=== PATIENT | female | born 1950 | race Caucasian/White ===

== ENCOUNTER 2019-06-13 09:14 | Emergency (ER) | payer OTHER ==
--- OUTSIDE RECORDS SUMMARY | 2019-06-13 09:16 | XMS REPORT | Summary of Care ---
:1950 Author Name Sherly Owusu M.A. Address Unavailable Unavailable , Care Team Providers Name Role Phone SUPRIYA MORTON Unavailable Unavailable SUPRIYA ALLISON Unavailable Unavailable Unavailable Unavailable Unavailable Functional Status Name Dates Details Functional status health issues are not documented Status: Name Dates Details Cognitive status health issues are not documented Status: Problems Name Dates Details Aftercare following knee joint replacement surgery, unspecified laterality ( V54.81, Z47.1) Status: Active Medications Name Dates Details Medications not documented Allergies and Adverse Reactions Name Dates Details Allergy history not documented Status: Procedures Procedure Dates Details Procedures not documented Immunization Name Dates Details Immunizations not documented Social History Name Dates Details Unknown if ever smoked Vital Signs Date Test Result Details No Known Vitals to report Results Date Description Value Details [id number] [U] XR KNEE 3 VWS BILATERAL XR KNEE 3 VWS BILATERAL Images acquired, not reported on this accession number. Plan of Care Name Dates Details Planned Observations Planned Goals not documented Interventions Provided Labs/Procedures/Imaging[U] XR KNEE 3 VWS BILATERAL; Done: 13 Dec 2018 Instructions Name Dates Details Instructions not documented Encounters Appointment; ARELIS LOWE P.A. On: 09-Oct-2017 13:45 Encounter Diagnosis: Problem not documented Appointment; STEPHANIE FERNANDEZ M.D. On: 31-Oct-2017 11:00 Encounter Diagnosis: Problem not documented Appointment; SUPRIYA KEATING P.A. On: 10-Nov-2017 11:15 Encounter Diagnosis: Problem not documented Appointment; STEPHANIE FERNANDEZ M.D. On: 07-Dec-2017 12:45 Encounter Diagnosis: Problem not documented Appointment; SUPRIYA KEATING P.A. On: 13-Dec-2018 13:20 Encounter Diagnosis: Problem not documented
[2019-06-13 09:56] LABS: Absolute Lymphocytes (CBC) 1.8 K/uL (0.7-4.9); Basophils % 0.4 % (0-1.3); Lymphocytes % 21.9 % (15.3-44.8); MPV 7.3 fL (7.6-11.3)
[2019-06-13] MEDS ORDERED: ASPIRIN 81 MG CHEWABLE TABLET ONE (09:59)
[2019-06-13] MEDS ORDERED: PANTOPRAZOLE 40 MG INJ ONE (10:00)
[2019-06-13 10:05] LABS: Protime INR 1.05
[2019-06-13 10:14] LABS: ALT/SGPT 20 U/L (12-78); AST/SGOT 15 U/L (15-37); Alkaline Phosphatase 122 U/L (45-117); BUN Blood Urea Nitrogen 25 mg/dL (7-18); Bicarbonate 31 mmol/L (21-32); Bilirubin Direct 0.2 mg/dL (0-0.2); Bilirubin Total 0.5 mg/dL (0.2-1.0); Glucose Level 129 mg/dL (74-106); Magnesium 2.2 mg/dL (1.8-2.4); NT PRO-BNP 36 pg/mL (<125); Protein, Total 7.9 g/dL (6.4-8.2); Sodium Level 142 mmol/L (136-145); Troponin (Emerg Dept Use Only) < 0.02 ng/mL (0.0-0.045)
--- NOTE | 2019-06-13 10:21 | RAD REPORT ---
EXAM DESCRIPTION: Rylee Single View06/13/2019 9:59 am CLINICAL HISTORY: Chest pain COMPARISON: none FINDINGS: The lungs appear clear of acute infiltrate. The heart is normal size IMPRESSION: No acute abnormalities displayed
--- NOTE | 2019-06-13 10:40 | ER ---
Nurse's Notes [facility] Name: Julieta Leija Age: 68 yrs Sex: Female : 1950 Arrival Date: 06/13/2019 Time: 09:15 Bed 20 Private MD: Diagnosis: Chest pain, unspecified;Gastro-esophageal reflux disease Presentation: 06/13 09:25 Presenting complaint: Patient states: intermittent indigestion and cold sweats that ss began 1 week ago. Patient also reports anxiety. Transition of care: patient was not received from another setting of care. Onset of symptoms was June 06, 2019. Risk Assessment: Do you want to hurt yourself or someone else? Patient reports no desire to harm self or others. Initial Sepsis Screen: Does the patient meet any 2 criteria? HR > 90 bpm. Does the patient have a suspected source of infection? No. Patient's initial sepsis screen is negative. Care prior to arrival: None. 09:25 Acuity: MIKE 3 ss 09:25 Method Of Arrival: Ambulatory ss Historical: - Allergies: 09:25 Codeine; ss 09:25 PENICILLINS; ss 09:25 steroids; ss - Home Meds: 09:25 None [Active]; ss - PMHx: 09:25 allergies; ss - PSHx: 09:25 Hysterectomy; ss - Immunization history:: Adult Immunizations up to date. - Social history:: Smoking status: Patient/guardian denies using tobacco. - Ebola Screening: : Patient denies exposure to infectious person Patient denies travel to an Ebola-affected area in the 21 days before illness onset. Screenin:07 Abuse screen: Denies threats or abuse. Denies injuries from another. Nutritional jl7 screening: No deficits noted. Tuberculosis screening: No symptoms or risk factors identified. Fall Risk IV access (20 points). Total Fragoso Fall Scale indicates No Risk (0-24 pts). Assessment: 09:20 General: Appears in no apparent distress. uncomfortable, Behavior is calm, cooperative, jl7 appropriate for age. Pain: Complains of pain in xyphoid area and mid-sternal area Pain does not radiate. Pain currently is 0 out of 10 on a pain scale. at worst was 8 out of 10 on a pain scale. Quality of pain is described as burning, Pain began a week ago Is intermittent. Neuro: Level of Consciousness is awake, alert, obeys commands, Oriented to person, place, time, situation. Cardiovascular: Patient's skin is warm and dry. Respiratory: Airway is patent Respiratory effort is even, unlabored, Respiratory pattern is regular, symmetrical, Breath sounds are clear bilaterally. GI: Reports epigastric pain. Derm: Skin is pink, warm \T\ dry. 10:32 Reassessment: Patient appears in no apparent distress at this time. Patient is alert, ca1 oriented x 3, equal unlabored respirations, skin warm/dry/pink. Vital Signs: 09:24 BP 176 / 91; Pulse 94; Resp 18; Temp 97.6(TE); Pulse Ox 98% on R/A; Weight 90.72 kg; ss Height 5 ft. 5 in. (165.10 cm); Pain 8/10; 10:07 BP 172 / 77; Pulse 89; Resp 16 S; Pulse Ox 96% on R/A; ca1 10:45 BP 154 / 89; Pulse 88; Resp 14 S; Pulse Ox 97% on R/A; ca1 09:24 Body Mass Index 33.28 (90.72 kg, 165.10 cm) ED Course: 09:15 Patient arrived in ED. as 09:19 Kyra Major RN is Primary Nurse. jl7 09:19 Zeferino Cunningham PA is PHCP. jr8 09:19 Krunal Perales MD is Attending Physician. jr8 09:20 Patient has correct armband on for positive identification. Placed in gown. Bed in low jl7 position. Call light in reach. Side rails up X 1. field mechanic on. Pulse ox on. NIBP on. 09:20 Warm blanket given. jl7 09:24 Arm band placed on right wrist. ss 09:29 Triage completed. ss 09:47 EKG done, by manufacturing tech. reviewed by Zeferino DIAZ. at1 09:51 Initial lab(s) drawn, by me, sent to lab. Inserted saline lock: 22 gauge in left jb1 antecubital area, using aseptic technique. Blood collected. 10:02 XRAY Chest (1 view) In Process Unspecified. EDMS 10:08 Report given to TODD Reaves. jl7 10:10 Primary Nurse role handed off by Kyra Major RN jl7 10:15 Acob, Jelly, RN is Primary Nurse. ca1 10:39 Chau Gunn MD is Referral Physician. jr8 11:01 No provider procedures requiring assistance completed. IV discontinued, intact, ca1 bleeding controlled, No redness/swelling at site. Pressure dressing applied. Administered Medications: 10:05 Drug: Aspirin Chewable Tablet 324 mg {Note: Pt reports taking one 81 mg aspirin this jl7 morning; 243 mg administered at this time..} Route: PO; 10:54 Follow up: Response: No adverse reaction ca1 10:05 Drug: ProTONIX 40 mg Route: IVP; Site: left antecubital; jl7 10:54 Follow up: Response: No adverse reaction ca1 Outcome: 10:40 Discharge ordered by MD. jr8 11: Discharged to home ambulatory, with family. ca1 11:01 Condition: stable 11:01 Discharge instructions given to patient, Instructed on discharge instructions, follow up and referral plans. medication usage, Demonstrated understanding of instructions, follow-up care, medications, Prescriptions given X 1. 11:02 Patient left the ED. ca1 Signatures: Dispatcher [employer] EDMS Manny Tuttle jb1 Kat Gil Shelby, RN RN Zeferino Cunningham PA PA jr8 Clau Bhatti, foundation engineer EKG Tat1 Kyra Major RN RN jl7 Jelly Smith, RN RN ca1
--- NOTE | 2019-06-13 10:41 | EDPHYS ---
Physician Documentation [facility] Name: Julieta Leija Age: 68 yrs Sex: Female : 1950 Arrival Date: 06/13/2019 Time: 09:15 Bed 20 Private MD: ED Physician Krunal Perales HPI: 06/13 09:58 This 68 yrs old Female presents to ER via Ambulatory with complaints of Jaw jr8 Pain, Indigestion, Cold Sweats. 09:58 Onset: gradually, 1 week(s) ago, and became worse. Onset: The symptoms/episode jr8 began/occurred acutely, today. The pain radiates to left jaw. Associated signs and symptoms: Pertinent negatives: abdominal pain, shortness of breath, vomiting. Modifying factors: The patient symptoms are alleviated by nothing, the patient symptoms are aggravated by nothing. Associated signs and symptoms: The patient has no apparent associated signs or symptoms. The chest pain is described as a pressure, stabbing. Duration: The patient or guardian reports multiple episodes, that are intermittent, the episodes last approximately 2 hour(s). Modifying factors: The symptoms are alleviated by antacids, NSAIDS, bleching. Severity of pain: At its worst the pain was moderate in the emergency department the pain has resolved. The patient has not experienced similar symptoms in the past. The patient has not recently seen a physician. 09:59 Patient has had indigestion like feeling on/off for one week with cold sweats. Was jr8 prolonged today without relief until she got to the ED. Some relief with belching, NSAIDs, and Tums with episodes. No history of GERD. On no daily medicines currently. Came to ED because it was not going away . Historical: - Allergies: 09:25 Codeine; ss 09:25 PENICILLINS; ss 09:25 steroids; ss - Home Meds: 09:25 None [Active]; ss - PMHx: 09:25 allergies; ss - PSHx: 09:25 Hysterectomy; ss - Immunization history:: Adult Immunizations up to date. - Social history:: Smoking status: Patient/guardian denies using tobacco. - Ebola Screening: : Patient denies exposure to infectious person Patient denies travel to an Ebola-affected area in the 21 days before illness onset. ROS: 09:58 Eyes: Negative for injury, pain, redness, and discharge, ENT: Negative for injury, jr8 pain, and discharge, Neck: Negative for injury, pain, and swelling, Respiratory: Negative for shortness of breath, cough, wheezing, and pleuritic chest pain, Abdomen/GI: Negative for abdominal pain, nausea, vomiting, diarrhea, and constipation, Back: Negative for injury and pain, MS/Extremity: Negative for injury and deformity, Skin: Negative for injury, rash, and discoloration, Neuro: Negative for headache, weakness, numbness, tingling, and seizure. 09:58 Cardiovascular: Positive for chest pain, Negative for edema, orthopnea, palpitations, paroxysmal nocturnal dyspnea. Exam: 09:58 Eyes: Pupils equal round and reactive to light, extra-ocular motions intact. Lids and jr8 lashes normal. Conjunctiva and sclera are non-icteric and not injected. Cornea within normal limits. Periorbital areas with no swelling, redness, or edema. ENT: Nares patent. No nasal discharge, no septal abnormalities noted. Tympanic membranes are normal and external auditory canals are clear. Oropharynx with no redness, swelling, or masses, exudates, or evidence of obstruction, uvula midline. Mucous membranes moist. Neck: Trachea midline, no thyromegaly or masses palpated, and no cervical lymphadenopathy. Supple, full range of motion without nuchal rigidity, or vertebral point tenderness. No Meningismus. Cardiovascular: Regular rate and rhythm with a normal S1 and S2. No gallops, murmurs, or rubs. Normal PMI, no JVD. No pulse deficits. Respiratory: Lungs have equal breath sounds bilaterally, clear to auscultation and percussion. No rales, rhonchi or wheezes noted. No increased work of breathing, no retractions or nasal flaring. Abdomen/GI: Soft, non-tender, with normal bowel sounds. No distension or tympany. No guarding or rebound. No evidence of tenderness throughout. Back: No spinal tenderness. No costovertebral tenderness. Full range of motion. Skin: Warm, dry with normal turgor. Normal color with no rashes, no lesions, and no evidence of cellulitis. MS/ Extremity: Pulses equal, no cyanosis. Neurovascular intact. Full, normal range of motion. Neuro: Awake and alert, GCS 15, oriented to person, place, time, and situation. Cranial nerves II-XII grossly intact. Motor strength 5/5 in all extremities. Sensory grossly intact. Cerebellar exam normal. Normal gait. Vital Signs: 09:24 BP 176 / 91; Pulse 94; Resp 18; Temp 97.6(TE); Pulse Ox 98% on R/A; Weight 90.72 kg; ss Height 5 ft. 5 in. (165.10 cm); Pain 8/10; 10:07 BP 172 / 77; Pulse 89; Resp 16 S; Pulse Ox 96% on R/A; ca1 10:45 BP 154 / 89; Pulse 88; Resp 14 S; Pulse Ox 97% on R/A; ca1 09:24 Body Mass Index 33.28 (90.72 kg, 165.10 cm) ss MDM: 09:35 Patient medically screened. jr8 10:38 The patient was given aspirin in the Emergency Department. Data reviewed: vital signs, jr8 nurses notes, lab test result(s), EKG, radiologic studies, plain films. Data interpreted: Pulse oximetry: on room air is 96 %. Interpretation: normal. Counseling: I had a detailed discussion with the patient and/or guardian regarding: the historical points, exam findings, and any diagnostic results supporting the discharge/admit diagnosis, lab results, radiology results, the need for outpatient follow up, a casino gaming inspector, a family practitioner, to return to the emergency department if symptoms worsen or persist or if there are any questions or concerns that arise at home. ED course: Patient still without pain. No lab, ecg, or imaging findings to suggest past or new OH or impending cardiac ischemia. Protonix given IV which patient stated made her feel even better. Will still have patient f/u with cardiology regardless and will send her home on PPI. Return precautions given. 06/13 09:19 Order name: Basic Metabolic Panel; Complete Time: 10:15 06/13 09:19 Order name: CBC with Diff; Complete Time: 10:01 06/13 09:19 Order name: LFT's; Complete Time: 10:15 06/13 09:19 Order name: Magnesium; Complete Time: 10:15 06/13 09:19 Order name: NT PRO-BNP; Complete Time: 10:15 06/13 09:19 Order name: PT-INR; Complete Time: 10:14 06/13 09:19 Order name: Troponin (emerg Dept Use Only); Complete Time: 10:15 06/13 09:19 Order name: XRAY Chest (1 view); Complete Time: 10:24 06/13 09:19 Order name: EKG; Complete Time: 09:21 06/13 09:19 Order name: Cardiac monitoring; Complete Time: 09:30 06/13 09:19 Order name: EKG - Nurse/Tech; Complete Time: 09:30 06/13 09:19 Order name: IV Saline Lock; Complete Time: 09:49 06/13 09:19 Order name: Labs collected and sent; Complete Time: 09:30 06/13 09:19 Order name: O2 Per Protocol; Complete Time: 09:30 06/13 09:19 Order name: O2 Sat Monitoring; Complete Time: 09:30 Administered Medications: 10:05 Drug: Aspirin Chewable Tablet 324 mg {Note: Pt reports taking one 81 mg aspirin this morning; 243 mg administered at this time..} Route: PO; 10:54 Follow up: Response: No adverse reaction ca1 10:05 Drug: ProTONIX 40 mg Route: IVP; Site: left antecubital; 10:54 Follow up: Response: No adverse reaction ca1 Disposition: 11:35 Co-signature as Attending Physician, Krunal Perales MD. rn Disposition: 06/13/19 10:40 Discharged to Home. Impression: Chest pain, unspecified, Gastro-esophageal reflux disease. - Condition is Stable. - Discharge Instructions: Nonspecific Chest Pain, Food Choices for Gastroesophageal Reflux Disease, Adult, Gastroesophageal Reflux Disease, Adult. - Prescriptions for omeprazole 40 mg Oral capsule,delayed release(DR/EC) - take 1 capsule by ORAL route once daily before a meal; 30 capsule. - Medication Reconciliation Form, Thank You Letter, Antibiotic Education, Prescription Opioid Use form. - Follow up: Chau Gunn MD; When: 2 - 3 days; Reason: Recheck today's complaints, Continuance of care, Re-evaluation by your physician. - Problem is new. - Symptoms are resolved. Signatures: Dispatcher [employer] EDOR Krunal Perales MD MD rn Smirch, Shelby, RN RN ss Roszak, Josh, PA PA jr8 Krya Major, RN RN jl7 Jelly Smith RN RN ca1 Corrections: (The following items were deleted from the chart) 10:40 10:40 06/13/2019 10:40 Discharged to Home. Impression: Chest pain, unspecified; jr8 Gastroduodenitis, unspecified. Condition is Stable. Forms are Medication Reconciliation Form, Thank You Letter, Antibiotic Education, Prescription Opioid Use. Follow up: Chau Gunn; When: 2 - 3 days; Reason: Recheck today's complaints, Continuance of care, Re-evaluation by your physician. Problem is new. Symptoms are resolved. jr8 11:02 10:40 06/13/2019 10:40 Discharged to Home. Impression: Chest pain, unspecified; ca1 Gastro-esophageal reflux disease. Condition is Stable. Forms are Medication Reconciliation Form, Thank You Letter, Antibiotic Education, Prescription Opioid Use. Follow up: Chau Gunn; When: 2 - 3 days; Reason: Recheck today's complaints, Continuance of care, Re-evaluation by your physician. Problem is new. Symptoms are resolved. jr8
[2019-06-13 11:14] VITALS: TEMP 97.6
[2019-06-13 11:17] VITALS: BP 154/89; O2SAT 97
--- NOTE | 2019-06-13 22:56 | EKG ---
Test Date: 2019-06-13 Test Time: 09:31:43 [employer] Consultant: ANTONIA MEASUREMENT RESULTS: Intervals: Rate: 90 NC: 138 QRSD: 82 QT: 358 QTc: 437 [place]: P: 55 NC: 138 QRS: -7 T: 42 INTERPRETIVE STATEMENTS: Normal sinus rhythm Normal ECG No previous ECG available for comparison Electronically Signed On 06-13-19 22:55:30 [employer] by Devonte Tobar
== END 2019-06-13 11:02 | disposition home or self-care (01) ==
LOC: ER 09:14
DX: K21.9 Gastro-esophageal reflux disease without esophagitis (principal); Z88.0 Allergy status to penicillin; Z88.5 Allergy status to narcotic agent; Z88.8 Allergy status to other drugs, medicaments and biological substances
CPT/HCPCS: 93005; 85025; 80048; 36415; 83735; 85610; 80076; 84484; 83880; 71045; 96374; 99284; C9113

== ENCOUNTER 2020-04-13 21:41 | Inpatient (IN) | payer OTHER ==
[2020-04-13] MEDS ORDERED: PANTOPRAZOLE 40 MG INJ ONE (22:43)
[2020-04-13 23:23] LABS: Basophils % 1.1 % (0-1.3); Hematocrit 45.8 % (36.0-45.0); Lymphocytes % 24.4 % (15.3-44.8); MPV 7.7 fL (7.6-11.3); RBC Red Blood Cell Count 5.16 M/uL (3.86-4.86)
[2020-04-13 23:34] LABS: Albumin 4.2 g/dL (3.4-5.0); Bilirubin Direct 0.1 mg/dL (0-0.2); Bilirubin Total 0.4 mg/dL (0.2-1.0); Potassium 3.9 mmol/L (3.5-5.1); Protein, Total 8.4 g/dL (6.4-8.2)
[2020-04-13 23:52] LABS: Urine Blood TRACE (NEG); Urine Glucose NEGATIVE (NEG); Urine Protein NEGATIVE (NEG); Urine Specific Gravity 1.015 (1.005-1.030); Urine pH 5.5 (5.0-7.0)
[2020-04-14] MEDS ORDERED: NA CHLORIDE 0.9% 500 ML ONE (00:17)
[2020-04-14] MEDS: PANTOPRAZOLE INJ 80 MG in NA CHLORIDE 0.9% 250 ML IV SCH ×3 (00:41→12:59)
--- NOTE | 2020-04-14 01:00 | EDPHYS ---
Physician Documentation [facility] Name: Julieta Leija Age: 69 yrs Sex: Female : 1950 Arrival Date: 04/13/2020 Time: 21:42 Bed 17 Private MD: ED Physician Zeb Clinton HPI: 04/13 22:56 This 69 yrs old Female presents to ER via Ambulatory with complaints of mh7 Rectal Bleeding. 22:56 The patient presents to the emergency department with bleeding from the rectum/anus, mh7 that is moderate. Onset: The symptoms/episode began/occurred today. Context: the patient has no known special context relating to the rectal area complaint(s). Modifying factors: The symptoms are alleviated by nothing, The symptoms are aggravated by bowel movement. 22:57 Associate signs and symptoms: Pertinent positives: lower GI bleeding, in toilet bowl, mh7 Pertinent negatives: abdominal pain, constipation, diarrhea, dysuria, fever, vomiting. Historical: - Allergies: 21:55 PENICILLINS; ll1 21:55 Codeine; ll1 21:55 steroids; ll1 21:55 unknown pain med; ll1 - PMHx: 21:55 allergies; ll1 21:55 Hypertension; ll1 - PSHx: 21:55 Hysterectomy; Knee surgery; ll1 - Immunization history:: Flu vaccine is not up to date. - Social history:: Smoking status: Patient denies any tobacco usage or history of. ROS: 22:57 Constitutional: Negative for fever, chills, and weight loss, Eyes: Negative for injury, mh7 pain, redness, and discharge, ENT: Negative for injury, pain, and discharge, Neck: Negative for injury, pain, and swelling, Cardiovascular: Negative for chest pain, palpitations, and edema, Respiratory: Negative for shortness of breath, cough, wheezing, and pleuritic chest pain, Back: Negative for injury and pain, : Negative for injury, bleeding, discharge, and swelling, MS/Extremity: Negative for injury and deformity, Skin: Negative for injury, rash, and discoloration, Neuro: Negative for headache, weakness, numbness, tingling, and seizure, Psych: Negative for depression, anxiety, suicide ideation, homicidal ideation, and hallucinations, Allergy/Immunology: Negative for hives, rash, and allergies, Endocrine: Negative for neck swelling, polydipsia, polyuria, polyphagia, and marked weight changes, Hematologic/Lymphatic: Negative for swollen nodes, abnormal bleeding, and unusual bruising. Exam: 22:57 Head/Face: Normocephalic, atraumatic. Eyes: Pupils equal round and reactive to light, mh7 extra-ocular motions intact. Lids and lashes normal. Conjunctiva and sclera are non-icteric and not injected. Cornea within normal limits. Periorbital areas with no swelling, redness, or edema. Neck: Trachea midline, no thyromegaly or masses palpated, and no cervical lymphadenopathy. Supple, full range of motion without nuchal rigidity, or vertebral point tenderness. No Meningismus. Chest/axilla: Normal chest wall appearance and motion. Nontender with no deformity. No lesions are appreciated. 22:57 Respiratory: Lungs have equal breath sounds bilaterally, clear to auscultation and percussion. No rales, rhonchi or wheezes noted. No increased work of breathing, no retractions or nasal flaring. 22:57 Back: No spinal tenderness. No costovertebral tenderness. Full range of motion. Skin: Warm, dry with normal turgor. Normal color with no rashes, no lesions, and no evidence of cellulitis. MS/ Extremity: Pulses equal, no cyanosis. Neurovascular intact. Full, normal range of motion. Neuro: Awake and alert, GCS 15, oriented to person, place, time, and situation. Cranial nerves II-XII grossly intact. Motor strength 5/5 in all extremities. Sensory grossly intact. Cerebellar exam normal. Normal gait. Psych: Awake, alert, with orientation to person, place and time. Behavior, mood, and affect are within normal limits. 22:57 Constitutional: The patient appears in no acute distress, alert, awake, anxious. 22:57 Cardiovascular: Rate: tachycardic, Rhythm: regular, Pulses: no pulse deficits are appreciated, Heart sounds: normal, normal S1and S2, Edema: is not appreciated, JVD: is not appreciated. 22:57 Abdomen/GI: Inspection: abdomen appears normal, Bowel sounds: normal, in all quadrants, Palpation: abdomen is soft and non-tender, Rectal exam: rectal tone normal, Stool: guaiac positive, hemorrhoid(s), external, without bleeding, without inflammation, without thrombosis, without pain, mass, is not appreciated, swelling, is not appreciated, tenderness, is not appreciated, fecal impaction, is not appreciated, the exam is chaperoned by the nurse, Indicators: McBurney's point is not tender, Madrigal's sign is negative, Rovsing's sign is negative, Obturator sign is negative, Psoas sign is negative, Liver: no appreciated palpable abnormalities, Hernia: not appreciated. Vital Signs: 21:56 BP 180 / 115; Pulse 110; Resp 18; Temp 97.8; Pulse Ox 96% ; Weight 93.44 kg; Height 5 ll1 ft. 6 in. (167.64 cm); Pain 08/19; 23:11 BP 178 / 76; Pulse 91; Resp 18; Pulse Ox 100% on R/A; ea 04/14 00:11 BP 166 / 72; Pulse 88; Resp 16; Pulse Ox 100% on R/A; sg 04/13 21:56 Body Mass Index 33.25 (93.44 kg, 167.64 cm) ll1 MDM: 04/13 22:20 Patient medically screened. [facility] 04/14 00:55 Differential diagnosis: hemorrhoids, fissure, abscess, Rectal Bleeding, GI Bleeding. [facility] Data reviewed: vital signs, nurses notes, old medical records, lab test result(s), CBC, electrolytes, urinalysis, EKG, radiologic studies, CT scan. Data interpreted: Pulse oximetry: on room air is 100 %. Interpretation: normal. Counseling: I had a detailed discussion with the patient and/or guardian regarding: the historical points, exam findings, and any diagnostic results supporting the discharge/admit diagnosis, the presence of at least one elevated blood pressure reading (>120/80) during this emergency department visit, lab results, radiology results, the need for further work-up and treatment in the hospital. Response to treatment: the patient's symptoms have markedly improved after treatment. Physician consultation: Mika Bonilla MD was contacted at 00:45, regarding patient's condition, and will see patient in inpatient room, would like admission per Dr. Rebecca Bello MD. 04/13 22:21 Order name: CBC with Diff; Complete Time: 23:34 7 04/13 22:21 Order name: Basic Metabolic Panel; Complete Time: 23:37 [facility] 04/13 22:21 Order name: Protime (+inr); Complete Time: 23:34 [facility] 04/13 22:21 Order name: Ptt, Activated; Complete Time: 23:34 [facility] 04/13 22:21 Order name: LFT's; Complete Time: 23:37 [facility] 04/13 22:21 Order name: Type And Screen [facility] 04/13 22:21 Order name: Urine Dipstick-Ancillary (obtain specimen); Complete Time: 23:04 [facility] 04/13 22:21 Order name: EKG - Nurse/Tech; Complete Time: 22:44 [facility] 04/13 23:03 Order name: Urine Dipstick--Ancillary (enter results); Complete Time: 00:45 tt3 04/13 23:39 Order name: CT Abd/Pelvis - IV Contrast Only [facility] Administered Medications: 04/13 23:09 Drug: ProTONIX 80 mg Route: IVP; Site: left antecubital; 04/14 00:34 Follow up: Response: No adverse reaction 00:16 Drug: NS 0.9% 500 ml Route: IV; Rate: bolus; Site: left antecubital; sg Disposition: 04/14/20 00:59 Hospitalization ordered by Mauricio Bello for Observation. Preliminary diagnosis is GI Bleeding. - Bed requested for Telemetry/MedSurg (observation). - Status is Observation. sg - Condition is Stable. - Problem is new. - Symptoms have improved. Signatures: Dispatcher [employer] EDMS Fernandez Christensen RN RN sg Antunez, Elena, RN RN ea Lewis, Lynsay, RN RN 1 Zeb Clinton MD MD [facility] Patrick Scott tt3 Corrections: (The following items were deleted from the chart) 01:38 00:59 Hospitalization Ordered by Mauricio Bello MD for Observation. Preliminary diagnosis tt3 is GI Bleeding. Bed requested for Telemetry/MedSurg (observation). Status is Observation. Condition is Stable. Problem is new. Symptoms have improved. [facility] 02:14 01:38 04/14/2020 00:59 Hospitalization Ordered by Mauricio Bello MD for Observation. sg Preliminary diagnosis is GI Bleeding. Bed requested for Telemetry/MedSurg (observation). Status is Observation. Condition is Stable. Problem is new. Symptoms have improved. tt3
--- NOTE | 2020-04-14 01:00 | ER ---
Nurse's Notes [facility] Name: Julieta Leija Age: 69 yrs Sex: Female : 1950 Arrival Date: 04/13/2020 Time: 21:42 Bed 17 Private MD: Diagnosis: GI Bleeding Presentation: 04/13 21:56 Chief complaint: Patient states: Noticed bright red blood in stool today, two different ll1 episodes. + rectal pain. + shaky and nervous. Coronavirus screen: Client denies travel out of the [place] in the last 14 days. At this time, the client does not indicate any symptoms associated with coronavirus-19. Ebola Screen: Patient denies travel to an Ebola-affected area in the 21 days before illness onset. Initial Sepsis Screen: Does the patient meet any 2 criteria? HR > 90 bpm. Does the patient have a suspected source of infection? Yes: Other: rectal bleeding. Risk Assessment: Do you want to hurt yourself or someone else? Patient reports no desire to harm self or others. Onset of symptoms was April 13, 2020. 21:56 Method Of Arrival: Ambulatory ll1 21:56 Acuity: MIKE 2 ll1 Historical: - Allergies: 21:55 PENICILLINS; ll1 21:55 Codeine; ll1 21:55 steroids; ll1 21:55 unknown pain med; ll1 - PMHx: 21:55 allergies; ll1 21:55 Hypertension; ll1 - PSHx: 21:55 Hysterectomy; Knee surgery; ll1 - Immunization history:: Flu vaccine is not up to date. - Social history:: Smoking status: Patient denies any tobacco usage or history of. Screenin:09 Abuse screen: Denies threats or abuse. Nutritional screening: No deficits noted. ea Tuberculosis screening: No symptoms or risk factors identified. Fall Risk IV access (20 points). Assessment: 23:10 General: Appears in no apparent distress. Behavior is cooperative, appropriate for age, ea anxious. Pain: Denies pain. Neuro: Level of Consciousness is awake, alert, obeys commands, Oriented to person, place, time. Respiratory: Airway is patent Respiratory effort is even, unlabored, Respiratory pattern is regular, symmetrical. Derm: Skin is pink, warm \T\ dry. 23:43 Reassessment: Patient and/or family updated on plan of care and expected duration. Pain sg level reassessed. pt ambulatory btb, placed back to monitors, srx1, bed in low and locked position, call light within reach, pt spouse remains at bedside at this time, awaiting radiology results, awaiting dispo, pt stated understanding, will continue to monitor. 04/14 00:18 Reassessment: Patient and/or family updated on plan of care and expected duration. Pain sg level reassessed. Patient is alert, oriented x 3, equal unlabored respirations, skin warm/dry/pink. pt returned from CT scan at this time, IV fluids have been administered as ordered, awaiting results at this time, will continue to monitor. 00:43 Reassessment: Patient appears in no apparent distress at this time. Patient is alert, sg oriented x 3, equal unlabored respirations, skin warm/dry/pink. pt requesting to use cellphone for asuncion, OK with staff at this time, pt awaiting new orders at this time. 00:52 Reassessment: at bedside updating pt on results and POC at this time, pt sg stated understanding. Vital Signs: 04/13 21:56 BP 180 / 115; Pulse 110; Resp 18; Temp 97.8; Pulse Ox 96% ; Weight 93.44 kg; Height 5 ll1 ft. 6 in. (167.64 cm); Pain 2/10; 23:11 BP 178 / 76; Pulse 91; Resp 18; Pulse Ox 100% on R/A; ea 04/14 00:11 BP 166 / 72; Pulse 88; Resp 16; Pulse Ox 100% on R/A; sg 04/13 21:56 Body Mass Index 33.25 (93.44 kg, 167.64 cm) ll1 ED Course: 04/13 21:42 Patient arrived in ED. cf2 21:57 Triage completed. ll1 21:57 Arm band placed on Patient placed in an exam room, on a stretcher. ll1 22:04 Zeb Clinton MD is Attending Physician. 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 bb 22:23 Breanne Keller, RN is Primary Nurse. ea 22:45 EKG done, by ED staff, reviewed by Zeb Clinton MD. jp3 22:50 Inserted saline lock: 22 gauge in left antecubital area, using aseptic technique. Blood ea collected. 22:53 Placed in gown. Bed in low position. Call light in reach. Side rails up X2. Warm jp3 blanket given. Pillow given. Verbal reassurance given. personnel monitor on. Pulse ox on. NIBP on. 23:39 Assisted to bathroom. sg 04/14 00:21 CT Abd/Pelvis - IV Contrast Only In Process Unspecified. EDMS 00:34 Assisted to bathroom. sg 00:52 Primary Nurse role handed off by Breanne Keller RN sg 00:52 Fernandez Christensen, RN is Primary Nurse. sg 00:59 Mauricio Bello MD is Hospitalizing Provider. [facility] 01:58 Patient admitted, IV remains in place. intact, No redness/swelling at site. sg Administered Medications: 04/13 23:09 Drug: ProTONIX 80 mg Route: IVP; Site: left antecubital; ea 04/14 00:34 Follow up: Response: No adverse reaction sg 00:16 Drug: NS 0.9% 500 ml Route: IV; Rate: bolus; Site: left antecubital; sg Outcome: 00:59 Decision to Hospitalize by Provider. 7 01:58 Admitted to Med/surg accompanied by tech, via wheelchair, room 229, with chart, Report sg called to Anali BROOKS 01:58 Condition: stable 01:58 Instructed on the need for admit, safety practices. 02:14 Patient left the ED. sg Signatures: Dispatcher [employer] EDMS Fernandez Christensen, RN Aleah Arreola RN RN bb Antunez, Elena, Yuriy Martinez RN, ea jp3 Sarah Beth Whalen cf2 Daniela Valencia RN RN ll1 Zeb Clinton MD MD 7
[2020-04-14] MEDS ORDERED: MORPHINE 2 MG/ML SYR IV PRN (01:06)
[2020-04-14] MEDS ORDERED: ONDANSETRON 4 MG/2 ML VIAL IV PRN (01:06)
[2020-04-14] MEDS ORDERED: NA CHLORIDE 0.9% 250 ML IV SCH (02:00)
[2020-04-14] MEDS ORDERED: PANTOPRAZOLE 40 MG INJ ONE (02:30)
[2020-04-14 04:05] VITALS: BMI 33.2
[2020-04-14] MEDS ORDERED: INFLUENZA VACCINE (for 3y+) 0.5 ML DOSE IMVAC ONE (08:00)
[2020-04-14 09:03] LABS: Absolute Lymphocytes (CBC) 1.7 K/uL (0.7-4.9); Basophils % 0.8 % (0-1.3); Hematocrit 43.8 % (36.0-45.0); Lymphocytes % 23.4 % (15.3-44.8); MPV 8.2 fL (7.6-11.3); RBC Red Blood Cell Count 4.91 M/uL (3.86-4.86)
[2020-04-14] MEDS: AMLODIPINE 5 MG TAB PO SCH (09:18)
--- NOTE | 2020-04-14 14:43 | RAD REPORT ---
EXAM DESCRIPTION: CT - Abdomen Pelvis W Contrast - 04/14/2020 6:50 am CLINICAL HISTORY: 69-year-old female with GI bleed. COMPARISON: None. TECHNIQUE: CT of the abdomen and pelvis was performed following intravenous administration of contra st. Oral contrast was not administered. Multiplanar reformatted images were provided. This exam was p erformed according to our departmental dose optimization program which includes use of automated expo sure control, adjustment of the mA and/or kV according to patient size and/or use of iterative recons truction technique. FINDINGS: Chest: Evaluation through the lung bases reveals tiny foci of tree-in-bud type reticular n odular opacities of the lingula and LEFT lower lobe, a finding which is nonspecific and may be seen w ith aspirate, scarring and other infectious or inflammatory processes. No confluent focal opacity, pleural effusion or pneumothorax. Heart size is within normal limits. No pericardial effusion. Abdomen and pelvis: The liver, gallbladder, pancreas, spleen, bilateral kidneys and bilateral adrenal glands are within normal limits. Focus of calcification present within the RIGHT renal pelvis may re flect nonobstructing calculi versus vascular calcification. The vessels are patent and normal in caliber. No abdominopelvic lymph nodes are noted to be pathologically enlarged by CT measurement criteria. The bowel is within normal limits without abnormal bowel wall thickness or bowel dilation. No free air. No free abdominopelvic fluid collections. The appendix is within normal limits. The osseous structures reveal degenerative change, particularly of the lower lumbar spine facets. IMPRESSION: 1. No specific acute intra-abdominal findings are noted to suggest etiology of the patie nt's abdominal pain. 2. Patchy tree-in-bud type opacities of the lingula and LEFT lower lobe as detailed above. Electronically signed by: Susan Zabala MD 04/14/2020 12:37 AM CDT Due to temporary technical issues with the PACS/Fluency reporting system, reports are being signed by the in house radiologist without review as a courtesy to ensure prompt reporting. The interpreting r adiologist is fully responsible for the content of the report.
[2020-04-14 22:56] VITALS: O2SAT 94
--- NOTE | 2020-04-15 05:58 | EKG ---
Test Date: 2020-04-13 Test Time: 22:43:55 [employer] Worker: CHARLEE MEASUREMENT RESULTS: Intervals: Rate: 96 SC: 146 QRSD: 80 QT: 348 QTc: 439 [place]: P: 69 SC: 146 QRS: -7 T: 58 INTERPRETIVE STATEMENTS: Normal sinus rhythm Nonspecific ST abnormality Abnormal ECG Compared to ECG 06/13/2019 09:31:43 ST (T wave) deviation now present Electronically Signed On 04-15-20 05:56:04 CDT by Chau Gunn
[2020-04-15 06:44] LABS: Absolute Lymphocytes (CBC) 1.3 K/uL (0.7-4.9); Basophils % 0.6 % (0-1.3); Hematocrit 43.8 % (36.0-45.0); Lymphocytes % 22.4 % (15.3-44.8); MPV 7.7 fL (7.6-11.3)
[2020-04-15 07:00] LABS: Magnesium 2.4 mg/dL (1.8-2.4); Potassium 4.2 mmol/L (3.5-5.1)
[2020-04-15] MEDS: PANTOPRAZOLE INJ 80 MG in NA CHLORIDE 0.9% 250 ML IV SCH (08:00)
--- NOTE | 2020-04-15 08:19 | HP ---
Date of Admission: 04/14/2020 Chief Complaint: Rectal bleeding. History Of Present Illness: A 69-year-old female patient admitted to the hospital for rectal bleeding. After the patient came into emergency room, she was evaluated and then admitted to the hospital. When I saw her this morning, she reports that yesterday afternoon around 12 p.m., she had had first episode of bright red blood per rectum and second episode was later on yesterday evening, so she decided to come to the emergency room. After she was evaluated in the ER, she was admitted to the hospital. She denies any abdominal pain, nausea, vomiting. No rectal pain. No constipation. No diarrhea. The patient says that from time to time, she does have some mucousy discharge from her rectum. She never had bleeding like this before. She never had a colonoscopy before. Her Cologuard test, which was done recently on the outpatient basis came back positive and she is willing to undergo colonoscopy. Review of Systems: GI: As mentioned above. All other systems reviewed and negative. Allergies: TO PENICILLIN, CAUSING RASH AND HIVES; CODEINE. Medications: Amlodipine 5 mg daily, aspirin 81 mg daily, multivitamin daily. Past Medical History: Significant for hypertension, hyperlipidemia, gastroesophageal reflux disease, osteoarthritis at multiple sites. Past Surgical History: Hysterectomy, bilateral knee replacement surgery. Family History: Father; COPD and heart disease. Mother; Alzheimer disease, heart disease. Sister with hypertension. Social History: Negative for smoking or alcohol use. Physical Examination: Vital Signs: This morning, last vital signs; temperature 97.4, pulse 80, respiratory rate 16, blood pressure 180/89, oxygen saturation 95%. Height 5 feet 6 inches, weight 206 pounds. General: Awake, alert, oriented, not in distress. HEENT: Head atraumatic, normocephalic. Conjunctivae nonerythematous. Sclerae white. Mouth, no thrush or edema noted. Ears/Nose, no mass, lesion, discharge noted. Neck: Supple. No JVD, lymph nodes, bruit, thyromegaly noted. Lungs: Bilateral good equal air entry. Clear to auscultation. No rhonchi. No rales. Heart: Normal heart sounds, no murmur or gallop. Abdomen: Soft, bowel sounds normal. No guarding, rigidity, tenderness, mass, hepatosplenomegaly, distention, or bruit noted. Extremities: No leg edema. No calf tenderness. Skin: No rash, ulcer, cellulitis. Lymphatics: No lymph node enlargement in neck, supraclavicular, infraclavicular region. Neuro: No focal neurological deficit. Chest: Unremarkable. External Genitalia: Deferred. Rectal: Deferred. Laboratory Data: White count 8.3, hemoglobin 15.3, platelets 217. INR 1.0. Sodium 131, potassium 3.9, chloride 106, bicarb 27, BUN 22, creatinine 1.02, glucose 138. Liver function tests unremarkable. Urinalysis; trace blood, otherwise negative. Impression: 1. Rectal bleeding. 2. Hypertension. 3. Hyperlipidemia. 4. Osteoarthritis, multiple sites. 5. Gastroesophageal reflux disease. Plan: We will admit the patient to the hospital for further evaluation and management of this problem. The patient is appropriate for inpatient and is expected to spend 2 midnights in the hospital. We will monitor her hemoglobin. She has not had recurrence of rectal bleeding after admission to the hospital. GI consultation was requested, Dr. Bonilla was contacted. I did talk to him in detail this morning. Clinically, there is no evidence of diverticulitis. CAT scan of the abdomen and pelvis also did not reveal any evidence for diverticulitis. So, there is a good possibility that the patient might be able to have outpatient colonoscopy sometime next week and all those details were discussed with her and Dr. Bonilla, who is going to do this outpatient colonoscopy next week. We will start her on clear liquid diet. I will see her tomorrow for followup. Depending on her condition, we will decide if we can discharge her to go home and different causes of rectal bleeding discussed with her. TATI/MODL Voice ID: [id number]
[2020-04-15] MEDS: AMLODIPINE 5 MG TAB PO SCH (08:27)
[2020-04-15 08:30] VITALS: BP 135/78
[2020-04-15 09:16] VITALS: TEMP 97.1
--- NOTE | 2020-04-15 22:49 | DS ---
Date of Discharge: 04/15/2020 History: The patient was seen this morning for followup. No new complaints or problems reported. Objective: Vital Signs: Reviewed. HEENT: Unremarkable. Lungs: Clear to auscultation. Heart: Sounds normal. Abdomen: Soft. Bowel sounds normal. No guarding, rigidity, tenderness, or distention. Extremities: No leg edema. Laboratory Data: Upon admission, white count 8.3, hemoglobin 15.3, platelets 217. Today, white count 5.9, hemoglobin 14.7, platelets 191. Chemistry upon admission; sodium 141, potassium 3.9, chloride 106, bicarb 27, BUN 22, creatinine 1.02, glucose 138. Liver function tests unremarkable. Discharge Medication And Instructions: 1. Stop aspirin. 2. Continue all other lccd-[id number]-savauwk supplements except discontinue vitamin A supplement. 3. Do not take any Aleve, Motrin, ibuprofen, or naproxen type of medications. 4. Follow up at my office next week on Monday and call office for appointment. 5. Follow up with Dr. Bonilla as per his instruction. 6. Continue amlodipine as prescribed. Hospital Course: A 69-year-old pleasant female patient, admitted to the hospital with rectal bleeding. Please see dictated H and P for more details. After the patient was evaluated in the ER, she was admitted to the hospital. Her hemoglobin remained stable. She had 3 different CBCs done and hemoglobin remained stable. She did not require any blood transfusion. She did not have any further episode of GI bleeding during this hospital stay. Dr. Bonilla from GI was consulted he evaluated her yesterday, and he is going to schedule her to have elective colonoscopy sometime within a week or so. The patient will follow up at his office. Her COVID-19 test was done when she came into hospital, result pending. Different causes of rectal bleeding/lower GI bleeding explained to the patient. Final Diagnoses: 1. Rectal bleeding. 2. Hypertension. 3. Hyperlipidemia. 4. Osteoarthritis, multiple sites. 5. Gastroesophageal reflux disease. TATI/MODL Voice ID: [id number] Report ID: [id number] LOREN
--- OUTSIDE RECORDS SUMMARY | 2020-04-16 09:50 | XMS REPORT | Continuity of Care Document ---
:1950 Author Organization [facility] t Address [address] [place] [address] [place] [address] Care Team Providers Name Role Phone ZURI Attending Clinician Unavailable REBECCA Attending Clinician Unavailable CHRISSY Attending Clinician Unavailable Problems Condition Condition Condition Status Onset Resolution Last Treating Co mments Source Name Details Category Date Date Treatment Clinician Date Aftercare Aftercare Problem Active Uni vers following following ity of knee joint knee joint [place] replacemen replacemen Ph ysici t surgery, t surgery, an s unspecifie unspecifie d d laterality laterality Allergies, Adverse Reactions, Alerts This patient has no known allergies or adverse reactions. Medications This patient has no known medications. Procedures Procedure Date / Time Performed Performing Clinician [facility] e [U] XR KNEE 3 S 2018-12-04 00:00:00 [facility] BILATERAL Physicians [U] XR KNEE 3 S 2017-12-05 00:00:00 [facility] BILATERAL Physicians Encounters Start End Encounter Admission Attending Care Care Encounter Source Date/Time Date/Time Type Type Clinicians Facility Department ID 2018-12-13 2018-12-13 NATHALIA Vaughn [facility] [id number] Univers 13:20:00 13:20:00 t; SUPRIYA KEATING [facility] [place] , P.A. Sports [place] R, P.A. Medicine Physici [facility] A 2017-12-07 2017-12-07 NATHALIA Preston [facility] [id number] Univers 12:45:00 12:45:00 t; STEPHANIE FERNANDEZ Orthopedics itGiselle Murillo M.D. Physici ans 2017-11-10 2017-11-10 NATHALIA Vaughn [facility] [id number] Univers 11:15:00 11:15:00 t; SUPRIYA KEATING [place] , P.ALay [place] [facility] 2017-10-31 2017-10-31 Appointmen NATHALIA FERNANDEZ UTP [id number] Univers 11:00:00 11:00:00 t; STEPHANIE FERNANDEZ it y of KENNETH, M.D. [place] M.D. Physickvng ans 2017-10-09 2017-10-09 Appointmen ROMANNATHALIA BROOKS UTP [id number] Univers 13:45:00 13:45:00 t; Alee INFANTE [place] KELLY, Physici P.A. ans Results Test Description Test Time Test Comments Results Result Sour e Comments [U] XR KNEE 3 VWS 2018-12-13 Images Univers ity of BILATERAL 12:58:00 acquired, not [place] reported on Physicians this accession number.
== END 2020-04-15 08:51 | disposition home or self-care (01) | DRG 379 ==
LOC: ER 21:41 → ERHOLD 04-14 01:08 → 2ND 04-14 01:59
PROVIDERS: ADMIT Internal Medicine; ATTEND Internal Medicine
DX: K92.2 Gastrointestinal hemorrhage, unspecified (principal); I10 Essential (primary) hypertension; E78.5 Hyperlipidemia, unspecified; M19.90 Unspecified osteoarthritis, unspecified site; K21.9 Gastro-esophageal reflux disease without esophagitis; Z88.5 Allergy status to narcotic agent; Z88.0 Allergy status to penicillin; Z88.8 Allergy status to other drugs, medicaments and biological substances; Z90.710 Acquired absence of both cervix and uterus; Z96.653 Presence of artificial knee joint, bilateral; Z20.828 Contact with and (suspected) exposure to other viral communicable diseases
CPT/HCPCS: 36415; 74177; 80048; 80076; 81003; 83735; 85025; 85610; 85730; 86850; 86900; 86901; 93005; 96374; 99285; C9113; J7040; J7050; Q9967; U0002

== ENCOUNTER 2020-04-23 22:01 | Emergency (ER) | payer OTHER ==
--- OUTSIDE RECORDS SUMMARY | 2020-04-23 22:02 | XMS REPORT | Continuity of Care Document ---
:1950 Author Organization [facility] [place] [facility] Address [address] [place] [address] [place] [id number] Care Team Providers Name Role Phone ZURI [...] Procedure Date / Time Performed Performing Clinician Sour e [U] XR KNEE 3 S 2018-12-04 00:00:00 [facility] BILATERAL Physicians [U] XR KNEE 3 S 2017-12-05 00:00:00 [facility] BILATERAL Physicians Encounters Start End Encounter Admission Attending Care Care Encounter Source Date/Time Date/Time Type Type Clinicians Facility Department ID 2018-12-13 2018-12-13 NATHALIA Vaughn Orthopedics [id number] Univers 13:20:00 13:20:00 t; SUPRIYA KEATING [facility] [place] , P.A. Sports [place] R, P.A. Medicine Physici [facility] A 2017-12-07 2017-12-07 NATHALIA Preston [facility] [id number] Univers 12:45:00 12:45:00 t; STEPHANIE FERNANDEZ Orthopedics itGiselle Murillo [facility]. [facility] 2017-11-10 2017-11-10 NATHALIA Vaughn [facility] [id number] Univers 11:15:00 11:15:00 t; SUPRIYA KEATING [place] , P.ALay [place] R, P.ALay Physici ans 2017-10-31 2017-10-31 Appointmen NATHALIA FERNANDEZ UTP [id number] Univers 11:00:00 11:00:00 t; STEPHANIE FERNANDEZ it y of Giselle BROWN M.D. Physici ans 2017-10-09 2017-10-09 Appointmen CHRISSYNATHALIA UTP [id number] Univers 13:45:00 13:45:00 t; Alee INFANTE of [place] LOWE Physici P.A. ans Results Test Description Test Time Test Comments Results Result Sour e Comments [U] XR KNEE 3 VWS 2018-12-13 Images Univers ity of BILATERAL 12:58:00 acquired, not [place] reported on Physicians this accession number.
[2020-04-23] MEDS ORDERED: FAMOTIDINE 20 MG/2 ML VIAL IV ONE (22:55)
[2020-04-23] MEDS ORDERED: predniSONE 20 MG TAB ONE (22:55)
[2020-04-23] MEDS ORDERED: DIPHENHYDRAMINE 50 MG/ML VIAL ONE (22:55)
[2020-04-23] MEDS ORDERED: METHYLPREDNISOLONE 125 MG INJ ONE (22:55)
[2020-04-23] MEDS ORDERED: NA CHLORIDE 0.9% 500 ML ONE (22:55)
[2020-04-23 23:18] LABS: Absolute Lymphocytes (CBC) 1.8 K/uL (0.7-4.9); Basophils % 1.3 % (0-1.3); Lymphocytes % 22.2 % (15.3-44.8); MPV 7.7 fL (7.6-11.3); RBC Red Blood Cell Count 4.73 M/uL (3.86-4.86)
[2020-04-23 23:31] LABS: ALT/SGPT 20 U/L (12-78); AST/SGOT 17 U/L (15-37); Albumin 3.7 g/dL (3.4-5.0); Alkaline Phosphatase 120 U/L (45-117); BUN Blood Urea Nitrogen 23 mg/dL (7-18); Bicarbonate 28 mmol/L (21-32); Bilirubin Direct < 0.1 mg/dL (0-0.2); Bilirubin Total 0.3 mg/dL (0.2-1.0); Glucose Level 137 mg/dL (74-106); Magnesium 2.3 mg/dL (1.8-2.4); Potassium 3.8 mmol/L (3.5-5.1); Protein, Total 7.6 g/dL (6.4-8.2); Sodium Level 143 mmol/L (136-145); Troponin (Emerg Dept Use Only) < 0.02 ng/mL (0.0-0.045)
--- NOTE | 2020-04-23 23:46 | ER ---
Nurse's Notes [facility] Name: Julieta Leija Age: 69 yrs Sex: Female : 1950 Arrival Date: 04/23/2020 Time: 22:02 Bed 2 Private MD: Diagnosis: Angioneurotic edema Presentation: 04/23 22:30 Chief complaint: Patient states: she thinks she is having an allergic reaction to an bb antibiotic which she has been taking for several days already it is Flagyl. Coronavirus screen: At this time, the client does not indicate any symptoms associated with coronavirus-19. Ebola Screen: No symptoms or risks identified at this time. Initial Sepsis Screen: Does the patient meet any 2 criteria? No. Patient's initial sepsis screen is negative. Does the patient have a suspected source of infection? No. Patient's initial sepsis screen is negative. Risk Assessment: Do you want to hurt yourself or someone else? Patient reports no desire to harm self or others. Onset of symptoms was April 23, 2020. 22:30 Method Of Arrival: Ambulatory 22:30 Acuity: MIKE 3 bb Triage Assessment: 22:30 General: Appears uncomfortable. rv Historical: - Allergies: 22:36 Codeine; bb 22:36 PENICILLINS; bb 22:36 steroids; bb 22:36 unknown pain med; bb - Home Meds: 22:36 Claritin-D 24 Hour 10-240 mg Oral Tb24 1 tab once daily [Active]; bb - PMHx: 22:36 allergies; Hypertension; bb - PSHx: 22:36 Hysterectomy; Knee surgery; bb - Immunization history:: Adult Immunizations unknown. - Social history:: Smoking status: unknown. - Family history:: not pertinent. Screenin:56 Abuse screen: Denies threats or abuse. Denies injuries from another. Nutritional rv screening: No deficits noted. Tuberculosis screening: No symptoms or risk factors identified. Fall Risk None identified. Assessment: 23:12 Reassessment: patient is feeling better. symptoms are resolving. denies tightness rv feeling on the throat. no SOB/. appears to be anxious about her blood pressure. General: Behavior is anxious. Pain: Denies pain. Vital Signs: 22:30 BP 172 / 76; Pulse 94; Resp 16 S; Temp 97.9(O); Pulse Ox 95% on R/A; Weight 93.44 kg bb (R); Height 5 ft. 5 in. (165.10 cm) (R); Pain 0/10; 23:14 BP 172 / 86; Pulse 84; Resp 17; Pulse Ox 96% on R/A; rv 22:30 Body Mass Index 34.28 (93.44 kg, 165.10 cm) ED Course: 22:02 Patient arrived in ED. cl3 22:27 Sherman Cheng MD is Attending Physician. sergio 22:29 Fabien Schreiber RN is Primary Nurse. rv 22:36 Triage completed. bb 22:36 Arm band placed on Patient placed in an exam room, on a stretcher, on pulse oximetry. bb Family accompanied patient. 22:36 Patient has correct armband on for positive identification. environmental monitoring specialist on. Pulse rv ox on. NIBP on. 22:45 No provider procedures requiring assistance completed. Inserted saline lock: 20 gauge rv in right hand, using aseptic technique. Blood collected. 23:52 XRAY Chest (1 view) In Process Unspecified. EDMS 23:57 IV discontinued, intact, bleeding controlled, No redness/swelling at site. Pressure rv dressing applied. Administered Medications: 22:51 Drug: Pepcid 20 mg Route: IVP; Site: right hand; rv 23:30 Follow up: Response: No adverse reaction rv 22:51 Drug: NS 0.9% 500 ml Route: IV; Rate: bolus; Site: right hand; rv 23:30 Follow up: IV Status: Completed infusion; IV Intake: 500ml rv 22:52 Drug: Benadryl 25 mg Route: IVP; Site: right hand; rv 23:31 Follow up: Response: No adverse reaction rv 22:52 Drug: SOLU-Medrol 125 mg Route: IVP; Site: right hand; rv 23:31 Follow up: Response: No adverse reaction rv 22:52 Drug: predniSONE 20 mg Route: PO; rv 23:31 Follow up: Response: No adverse reaction rv Intake: 23:30 IV: 500ml; Total: 500ml. rv Outcome: 23:46 Discharge ordered by . sergio 23:57 Discharged to home ambulatory, with family. rv 23:57 Condition: improved 23:57 Discharge instructions given to patient, family, Instructed on discharge instructions, follow up and referral plans. medication usage, Demonstrated understanding of instructions, follow-up care, medications, Prescriptions given X 4. 23:58 Patient left the ED. rv Signatures: Dispatcher [employer] Sherman Carmichael MD MD cha Ballard, Brenda, RN RN Fabien Quiroz RN RN Fang Cruz cl3
--- NOTE | 2020-04-23 23:46 | EDPHYS ---
Physician Documentation [facility] Name: Julieta Leija Age: 69 yrs Sex: Female : 1950 Arrival Date: 04/23/2020 Time: 22:02 Bed 2 Private MD: ED Physician Sherman Cheng HPI: 04/23 22:39 This 69 yrs old Female presents to ER via Ambulatory with complaints of sergio Allergic Reaction To Medicine. 22:39 The patient presents with pain, swelling. The problem is located in the left jaw. sergio Onset: The symptoms/episode began/occurred just prior to arrival. Modifying factors: The symptoms are alleviated by nothing, the symptoms are aggravated by nothing. Associated signs and symptoms: The patient has no apparent associated signs or symptoms. Severity of symptoms: At their worst the symptoms were mild, in the emergency department the symptoms have improved. Historical: - Allergies: 22:36 Codeine; bb 22:36 PENICILLINS; bb 22:36 steroids; bb 22:36 unknown pain med; bb - Home Meds: 22:36 Claritin-D 24 Hour 10-240 mg Oral Tb24 1 tab once daily [Active]; bb - PMHx: 22:36 allergies; Hypertension; bb - PSHx: 22:36 Hysterectomy; Knee surgery; bb - Immunization history:: Adult Immunizations unknown. - Social history:: Smoking status: unknown. - Family history:: not pertinent. ROS: 22:39 Constitutional: Negative for fever, chills, and weight loss, Eyes: Negative for injury, sergio pain, redness, and discharge, Neck: Negative for injury, pain, and swelling, Cardiovascular: Negative for chest pain, palpitations, and edema, Respiratory: Negative for shortness of breath, cough, wheezing, and pleuritic chest pain, Abdomen/GI: Negative for abdominal pain, nausea, vomiting, diarrhea, and constipation, Back: Negative for injury and pain, : Negative for injury, bleeding, discharge, and swelling, MS/Extremity: Negative for injury and deformity, Skin: Negative for injury, rash, and discoloration, Neuro: Negative for headache, weakness, numbness, tingling, and seizure, Psych: Negative for depression, anxiety, suicide ideation, homicidal ideation, and hallucinations, Allergy/Immunology: Negative for hives, rash, and allergies, Endocrine: Negative for neck swelling, polydipsia, polyuria, polyphagia, and marked weight changes, Hematologic/Lymphatic: Negative for swollen nodes, abnormal bleeding, and unusual bruising. 22:39 ENT: Positive for difficulty swallowing. Exam: 22:39 Constitutional: This is a well developed, well nourished patient who is awake, alert, sergio and in no acute distress. Head/Face: Normocephalic, atraumatic. Eyes: Pupils equal round and reactive to light, extra-ocular motions intact. Lids and lashes normal. Conjunctiva and sclera are non-icteric and not injected. Cornea within normal limits. Periorbital areas with no swelling, redness, or edema. ENT: Nares patent. No nasal discharge, no septal abnormalities noted. Tympanic membranes are normal and external auditory canals are clear. Oropharynx with no redness, swelling, or masses, exudates, or evidence of obstruction, uvula midline. Mucous membranes moist. Neck: Trachea midline, no thyromegaly or masses palpated, and no cervical lymphadenopathy. Supple, full range of motion without nuchal rigidity, or vertebral point tenderness. No Meningismus. Chest/axilla: Normal chest wall appearance and motion. Nontender with no deformity. No lesions are appreciated. Cardiovascular: Regular rate and rhythm with a normal S1 and S2. No gallops, murmurs, or rubs. Normal PMI, no JVD. No pulse deficits. Respiratory: Lungs have equal breath sounds bilaterally, clear to auscultation and percussion. No rales, rhonchi or wheezes noted. No increased work of breathing, no retractions or nasal flaring. Abdomen/GI: Soft, non-tender, with normal bowel sounds. No distension or tympany. No guarding or rebound. No evidence of tenderness throughout. Back: No spinal tenderness. No costovertebral tenderness. Full range of motion. Skin: Warm, dry with normal turgor. Normal color with no rashes, no lesions, and no evidence of cellulitis. MS/ Extremity: Pulses equal, no cyanosis. Neurovascular intact. Full, normal range of motion. Neuro: Awake and alert, GCS 15, oriented to person, place, time, and situation. Cranial nerves II-XII grossly intact. Motor strength 5/5 in all extremities. Sensory grossly intact. Cerebellar exam normal. Normal gait. Psych: Awake, alert, with orientation to person, place and time. Behavior, mood, and affect are within normal limits. 22:39 ENT: Posterior pharynx: is normal, no acute changes. 23:45 ECG was reviewed by the Attending Physician. [facility] Vital Signs: 22:30 BP 172 / 76; Pulse 94; Resp 16 S; Temp 97.9(O); Pulse Ox 95% on R/A; Weight 93.44 kg bb (R); Height 5 ft. 5 in. (165.10 cm) (R); Pain 0/10; 23:14 BP 172 / 86; Pulse 84; Resp 17; Pulse Ox 96% on R/A; rv 22:30 Body Mass Index 34.28 (93.44 kg, 165.10 cm) bb MDM: 22:27 Patient medically screened. [facility] 22:41 Data reviewed: vital signs, nurses notes, lab test result(s), EKG, radiologic studies, sergio plain films. Data interpreted: patient monitor: rate is 94 beats/min, rhythm is regular, Pulse oximetry: on room air is 95 %. Test interpretation: by ED physician or midlevel provider: ECG, plain radiologic studies. Counseling: I had a detailed discussion with the patient and/or guardian regarding: the historical points, exam findings, and any diagnostic results supporting the discharge/admit diagnosis, lab results, radiology results. 23:44 ED course: patient improved, will dc with follow up. [facility] 04/23 22:38 Order name: Basic Metabolic Panel [facility] 04/23 22:38 Order name: CBC with Diff [facility] 04/23 22:38 Order name: LFT's; Complete Time: 23:42 [facility] 04/23 22:38 Order name: Magnesium; Complete Time: 23:42 [facility] 04/23 22:38 Order name: Troponin (emerg Dept Use Only); Complete Time: 23:42 [facility] 04/23 22:39 Order name: Basic Metabolic Panel; Complete Time: 23:42 EDMS 04/23 22:38 Order name: XRAY Chest (1 view) [facility] 04/23 22:38 Order name: EKG; Complete Time: 22:39 [facility] 04/23 22:39 Order name: CBC with Automated Diff; Complete Time: 23:42 EDMS 04/23 22:38 Order name: Cardiac monitoring; Complete Time: 22:52 [facility] 04/23 22:38 Order name: EKG - Nurse/Tech; Complete Time: 22:52 [facility] 04/23 22:38 Order name: IV Saline Lock; Complete Time: 22:52 [facility] 04/23 22:38 Order name: Labs collected and sent; Complete Time: :52 [facility] 04/23 22:38 Order name: O2 Per Protocol; Complete Time: :52 [facility] 04/23 22:38 Order name: O2 Sat Monitoring; Complete Time: :52 [facility] EC:45 Rate is 87 beats/min. Rhythm is regular. QRS [place] is Normal. OR interval is normal. QRS sergio interval is normal. QT interval is normal. No Q waves. T waves are Normal. No ST changes noted. Clinical impression: NSR w/ Non-specific ST/T Changes and No evidence of ischemia. Reviewed by me. Administered Medications: 22:51 Drug: Pepcid 20 mg Route: IVP; Site: right hand; rv 23:30 Follow up: Response: No adverse reaction rv 22:51 Drug: NS 0.9% 500 ml Route: IV; Rate: bolus; Site: right hand; rv 23:30 Follow up: IV Status: Completed infusion; IV Intake: 500ml rv 22:52 Drug: Benadryl 25 mg Route: IVP; Site: right hand; rv 23:31 Follow up: Response: No adverse reaction rv 22:52 Drug: SOLU-Medrol 125 mg Route: IVP; Site: right hand; rv 23:31 Follow up: Response: No adverse reaction rv 22:52 Drug: predniSONE 20 mg Route: PO; rv 23:31 Follow up: Response: No adverse reaction rv Disposition: 04/23/20 23:46 Discharged to Home. Impression: Angioneurotic edema. - Condition is Stable. - Discharge Instructions: Allergies, Adult, Angioedema, Angioedema, Gxyj-ek-Cmir. - Prescriptions for Benadryl 25 mg Oral Capsule - take 1 capsule by ORAL route every 6 hours As needed; 30 tablet. Pepcid 20 mg Oral Tablet - take 1 tablet by ORAL route every 12 hours for 10 days; 20 tablet. Medrol (Watson) 4 mg Oral Tablets, Dose Pack - take 1 tablet by ORAL route as directed - follow package instructions; 1 packet. EpiPen 0.3 mg Injection auto- injector - inject 1 pen by INTRAMUSCULAR route as directed Inject into the outer portion of the thigh, through clothing if necessary. Indicated in the emergency treatment of allergic reactions; 1 Container. - Medication Reconciliation Form, Thank You Letter, Antibiotic Education, Prescription Opioid Use form. - Follow up: Private Physician; When: 2 - 3 days; Reason: Recheck today's complaints, Continuance of care, Re-evaluation by your physician. - Problem is new. - Symptoms have improved. Signatures: Dispatcher [employer] EDMS Sherman Cheng MD MD cha Ballard, Brenda, RN RN Fabien Quiroz, TODD RN rv Corrections: (The following items were deleted from the chart) 23:57 23:46 04/23/2020 23:46 Discharged to Home. Impression: Angioneurotic edema. Condition rv is Stable. Discharge Instructions: Angioedema, Angioedema, [id number]. Prescriptions for Benadryl 25 mg Oral Capsule - take 1 capsule by ORAL route every 6 hours As needed; 30 tablet, Pepcid 20 mg Oral Tablet - take 1 tablet by ORAL route every 12 hours for 10 days; 20 tablet, Medrol (Watson) 4 mg Oral Tablets, Dose Pack - take 1 tablet by ORAL route as directed - follow package instructions; 1 packet, EpiPen 0.3 mg Injection auto-injector - inject 1 pen by INTRAMUSCULAR route as directed Inject into the outer portion of the thigh, through clothing if necessary. Indicated in the emergency treatment of allergic reactions; 1 Container. and Forms are Medication Reconciliation Form, Thank You Letter, Antibiotic Education, Prescription Opioid Use. Follow up: Private Physician; When: 2 - 3 days; Reason: Recheck today's complaints, Continuance of care, Re-evaluation by your physician. Problem is new. Symptoms have improved. sergio
[2020-04-24 00:31] VITALS: TEMP 97.9
[2020-04-24 00:33] VITALS: BP 172/86; O2SAT 96
--- NOTE | 2020-04-24 09:05 | RAD REPORT ---
EXAM DESCRIPTION: Rylee Single View04/23/2020 11:52 pm CLINICAL HISTORY: Cough COMPARISON: 2018 FINDINGS: The lungs appear clear of acute infiltrate. The heart is normal size IMPRESSION: No acute abnormalities displayed
== END 2020-04-23 23:57 | disposition home or self-care (01) ==
LOC: ER 22:01
DX: T78.3XXA Angioneurotic edema, initial encounter (principal); I10 Essential (primary) hypertension; Z88.0 Allergy status to penicillin; Z88.5 Allergy status to narcotic agent; Z88.6 Allergy status to analgesic agent; Z88.8 Allergy status to other drugs, medicaments and biological substances
CPT/HCPCS: 96361; 93005; 85025; 80048; 36415; 83735; 80076; 84484; 71045; 96375; 96374; 99284; J1200; J7040; J2930; J7512

== ENCOUNTER 2020-07-28 13:55 | Observation (INO) | payer OTHER ==
--- OUTSIDE RECORDS SUMMARY | 2020-07-28 13:58 | XMS REPORT | Continuity of Care Document ---
:1950 Author Organization [facility] [place] Address [address] [place] [address] [place] [id number] Care Team Providers Name Role Phone ZURI [...] Procedure Date / Time Performed Performing Clinician [facility] e [U] XR KNEE 3 S 2018-12-04 00:00:00 [facility] BILATERAL Physicians [U] XR KNEE 3 S 2017-12-05 00:00:00 [facility] BILATERAL Physicians Encounters Start End Encounter Admission Attending Care Care Encounter Source Date/Time Date/Time Type Type Clinicians Facility Department ID 2018-12-13 2018-12-13 NATHALIA Vaughn [facility] [id number] Univers 13:20:00 13:20:00 t; SUPRIYA KEATING [facility] [place] , P.A. Sports [place] R, P.A. Medicine Physici [facility] A 2017-12-07 2017-12-07 NATHALIA Preston [facility] [id number] Univers 12:45:00 12:45:00 t; STEPHANIE FERNANDEZ Orthopedics itGiselle Murillo M.D. Physici ans 2017-11-10 2017-11-10 NATHALIA Vaughn [facility] [id number] Univers 11:15:00 11:15:00 t; SUPRIYA KEATING [place] , P.ALay [place] R, P.A. Physici ans 2017-10-31 2017-10-31 Appointmen NATHALIA FERNANDEZ UTP [id number] Univers 11:00:00 11:00:00 t; STEPHANIE FERNANDEZ it y of Giselle BROWN M.D. Physici ans 2017-10-09 2017-10-09 Appointmen ROMANNATHALIA BROOKS UTP [id number] Univers 13:45:00 13:45:00 t; Alee INFANTE [place] KELLY, Physici P.A. ans Results Test Description Test Time Test Comments Results Result Sour e Comments [U] XR KNEE 3 VWS 2018-12-13 Images Univers ity of BILATERAL 12:58:00 acquired, not [place] reported on Physicians this accession number.
[2020-07-28 15:01] LABS: Absolute Lymphocytes (CBC) 1.6 K/uL (0.7-4.9); Basophils % 0.7 % (0-1.3); Hematocrit 44.5 % (36.0-45.0); Lymphocytes % 20.6 % (15.3-44.8); MPV 7.4 fL (7.6-11.3); RBC Red Blood Cell Count 5.05 M/uL (3.86-4.86)
[2020-07-28 15:07] LABS: Protime INR 0.95
[2020-07-28 15:17] LABS: ALT/SGPT 28 U/L (12-78); AST/SGOT 23 U/L (15-37); Albumin 3.9 g/dL (3.4-5.0); Alkaline Phosphatase 145 U/L (45-117); BUN Blood Urea Nitrogen 21 mg/dL (7-18); Bicarbonate 28 mmol/L (21-32); Bilirubin Direct 0.1 mg/dL (0-0.2); Bilirubin Total 0.3 mg/dL (0.2-1.0); Glucose Level 183 mg/dL (74-106); Magnesium 2.3 mg/dL (1.8-2.4); NT PRO-BNP 108 pg/mL (<125); Protein, Total 8.1 g/dL (6.4-8.2); Sodium Level 141 mmol/L (136-145); Troponin (Emerg Dept Use Only) < 0.02 ng/mL (0.0-0.045)
--- NOTE | 2020-07-28 15:37 | RAD REPORT ---
EXAM DESCRIPTION: RAD - Chest Single View - 07/28/2020 2:46 pm CLINICAL HISTORY: CHEST PAIN COMPARISON: Portable April 2020 TECHNIQUE: AP portable chest image was obtained 07/28/2020 2:46 pm . FINDINGS: No focal mass or consolidations seen. Interstitial pattern and central vasculature are fra ctionally increased over comparison. Trachea is midline. Heart size is normal. No measurable pleural effusion and no pneumothorax. No acute bony abnormality seen. No acute aortic findings suspected. IMPRESSION: Subtle increase in interstitial thickening and central vascular engorgement. Heart size is normal. Very minimal failure or volume overload are possible. Minimal infiltrate is possible if the patient h as any infectious clinical findings.
[2020-07-28] MEDS ORDERED: ONDANSETRON 4 MG/2 ML VIAL ONE (16:25)
--- NOTE | 2020-07-28 17:00 | RAD REPORT ---
EXAM DESCRIPTION: CT - Chest For Pe Angio - 07/28/2020 4:34 pm CLINICAL HISTORY: CHEST PAIN COMPARISON: Chest Single View dated 07/28/2020 TECHNIQUE: Dynamically enhanced 3 mm thick images of the chest were obtained during administration o f approximately 150mL Isovue 370 IV contrast. Coronal and oblique MIP reconstruction images were gene rated and reviewed. Exam utilizes a protocol to evaluate the pulmonary arterial tree. All CT scans are performed using dose optimization technique as appropriate and may include automated exposure control or mA/KV adjustment according to patient size. FINDINGS: No pulmonary emboli are identified. The aorta as imaged shows no acute or suspicious finding. No pericardial thickening or effusion. No suspicious mass or dense consolidation identified. The patient has tree in bud type parenchymal op acities scattered in both lung robles. A mild overall increase in the interstitial prominence noted. No pleural effusion or pleural thickening. No mediastinal or hilar suspicious masses. No chest wall masses or abnormal axillary lymphadenopathy. IMPRESSION: No pulmonary emboli identified. Scattered interstitial thickening and scattered tree-in-bud lung parenchymal opacities are present. T his is most likely a mild infectious process. Pattern is nonspecific and can be seen with bacterial a nd viral etiologies as well as mycobacterium or other atypical pneumonias.
[2020-07-28] MEDS ORDERED: AZITHROMYCIN IV 500 MG in NA CHLORIDE 0.9% 250 ML IVPB ONE (18:00)
[2020-07-28 18:17] LABS: SARS-COV-2 RT PCR NEGATIVE (NEGATIVE)
--- NOTE | 2020-07-28 18:48 | ER ---
Nurse's Notes [facility] Name: Julieta Leija Age: 70 yrs Sex: Female : 1950 Arrival Date: 07/28/2020 Time: 13:59 Bed 4 Private MD: Rebecca Bello C Diagnosis: Chest pain, unspecified;Pneumonia Presentation: 07/28 14:00 Chief complaint: Patient states: Chest pain, heavy started this morning around 0700, ca1 non-radiating, intermittent. Nausea and Diarrhea since this morning, 3 episodes. SOB with exertion. Denies cough and fever. Coronavirus screen: Client denies travel out of the [place] in the last 14 days. diarrhea, nausea, shortness of breath. Ebola Screen: Patient negative for fever greater than or equal to 101.5 degrees Fahrenheit, and additional compatible Ebola Virus Disease symptoms Patient denies exposure to infectious person. Patient denies travel to an Ebola-affected area in the 21 days before illness onset. No symptoms or risks identified at this time. Initial Sepsis Screen: Does the patient meet any 2 criteria? No. Patient's initial sepsis screen is negative. Does the patient have a suspected source of infection? No. Patient's initial sepsis screen is negative. Risk Assessment: Do you want to hurt yourself or someone else? Patient reports no desire to harm self or others. Onset of symptoms was July 28, 2020. 14:00 Method Of Arrival: Wheelchair ca1 14:00 Acuity: MIKE 2 ca1 Triage Assessment: 21:56 General: Appears comfortable. Respiratory: the patient has mild shortness of breath. rv Respiratory: Onset: The symptoms/episode began/occurred gradually. Historical: - Allergies: 14:04 Codeine; ca1 14:04 PENICILLINS; ca1 14:04 steroids; ca1 14:04 Dilaudid; ca1 - Home Meds: 14:04 amlodipine 5 mg tab 1 tab once daily [Active]; omeprazole 40 mg Oral cpDR 1 cap once ca1 daily [Active]; - PMHx: 14:04 allergies; Hypertension; ca1 - PSHx: 14:04 Hysterectomy; Knee surgery; ca1 - Immunization history:: Pneumococcal vaccine is not up to date, Flu vaccine is not up to date. - Social history:: Smoking status: Patient denies any tobacco usage or history of. Screenin:00 Abuse screen: Denies threats or abuse. Denies injuries from another. Nutritional jl7 screening: No deficits noted. Tuberculosis screening: No symptoms or risk factors identified. Fall Risk IV access (20 points). Total Fragoso Fall Scale indicates No Risk (0-24 pts). Assessment: 14:30 General: Appears in no apparent distress. uncomfortable, Behavior is calm, cooperative, jl7 appropriate for age. Pain: Denies pain. Neuro: Level of Consciousness is awake, alert, obeys commands, Oriented to person, place, time, situation. Cardiovascular: Denies chest pain, Patient's skin is warm and dry. Rhythm is regular. Respiratory: Reports shortness of breath on exertion Airway is patent Respiratory effort is even, labored, Respiratory pattern is symmetrical, tachypnea Derm: Skin is pink, warm \T\ dry. 15:38 Reassessment: Patient appears in no apparent distress at this time. No changes from jl7 previously documented assessment. Patient and/or family updated on plan of care and expected duration. Pain level reassessed. Patient is alert, oriented x 3, equal unlabored respirations, skin warm/dry/pink. 17:12 Reassessment: Patient appears in no apparent distress at this time. No changes from jl7 previously documented assessment. Patient and/or family updated on plan of care and expected duration. Pain level reassessed. Patient is alert, oriented x 3, equal unlabored respirations, skin warm/dry/pink. 17:59 Reassessment: Patient appears in no apparent distress at this time. Patient and/or iw family updated on plan of care and expected duration. Pain level reassessed. Patient is alert, oriented x 3, equal unlabored respirations, skin warm/dry/pink. pt updated on POC, awaiting COVID results, pt understands that the plan is for her to hospitalized , asking for food, will bring her something to eat at ER screening area. 19:59 Reassessment: Patient and/or family updated on plan of care and expected duration. Pain ea level reassessed. Patient is alert, oriented x 3, equal unlabored respirations, skin warm/dry/pink. Vital Signs: 14:00 BP 172 / 72; Pulse 107; Resp 20 S; Temp 97(TE); Pulse Ox 98% on R/A; Weight 95.25 kg ca1 (R); Height 5 ft. 5 in. (165.10 cm) (R); Pain 0/10; 15:38 BP 158 / 83; Pulse 96; Resp 22; Pulse Ox 97% ; jl7 17:12 BP 135 / 64; Pulse 94; Resp 19; Pulse Ox 96% ; jl7 14:00 Body Mass Index 34.95 (95.25 kg, 165.10 cm) ca1 ED Course: 13:59 Patient arrived in ED. am4 13:59 Rebecca Bello MD is Private Physician. am4 14:02 Triage completed. ca1 14:04 Arm band placed on right wrist. ca1 14:07 Drake Pal PA is PHCP. jmm 14:07 Sherman Cheng MD is Attending Physician. [facility] 14:10 Kyra Major RN is Primary Nurse. jl7 14:15 Patient has correct armband on for positive identification. Placed in gown. Bed in low jl7 position. Call light in reach. Side rails up X2. front desk monitor on. Pulse ox on. NIBP on. Warm blanket given. 14:38 EKG done, by ED staff, reviewed by Drake DIAZ. jl7 14:45 Initial lab(s) drawn, by nj, sent to lab. Inserted saline lock: 22 gauge in left aa5 antecubital area, using aseptic technique. Blood collected. 14:46 XRAY Chest (1 view) In Process Unspecified. EDMS 16:34 CT Chest For PE Angio In Process Unspecified. EDMS 18:47 Rebecca Bello MD is Hospitalizing Provider. [facility] 19:11 No provider procedures requiring assistance completed. Patient admitted, IV remains in jl7 place. intact, No redness/swelling at site. 19:12 Report given to TODD Raymundo. jl7 19:24 Primary Nurse role handed off by Kyra Major RN jl7 21:53 Fabien Schreiber, TODD is Primary Nurse. rv Administered Medications: 17:10 CANCELLED (Duplicate Order): AZITHromycin 500 mg PO once [facility] 17:59 Drug: AZITHromycin 500 mg Route: IVPB; Infused Over: 1 hrs; Site: left antecubital; iw 19:11 Follow up: Response: No adverse reaction; IV Status: Completed infusion jl Outcome: 18:47 Decision to Hospitalize by Provider. jm 19:58 Instructed on the need for admit, Demonstrated understanding of instructions. ea 21:54 Admitted to Med/surg accompanied by tech, via wheelchair, room 215, Other sbar, ekg rv Report called to vicki quiroga 21:54 Condition: good 22:03 Patient left the ED. rv Signatures: Dispatcher [employer] EDMS Drake Pal PA PA jmm Williams, Irene, RN RN iw Concha Holt RN RN aa5 Kyra Major RN RN jl7 Breanne Keller RN Fabien Ferrer ea, RN RN rv AcobJelly RN TODD ca1 Christina Gil Corrections: (The following items were deleted from the chart) 14:05 14:00 Acuity: MIKE 3 ca1 ca1 22:03 21:54 Admitted to Med/surg accompanied by tech, via wheelchair, room 215, Other sbar, rv ekg rv
--- NOTE | 2020-07-28 18:48 | EDPHYS ---
Physician Documentation [facility] Name: Julieta Leija Age: 70 yrs Sex: Female : 1950 Arrival Date: 07/28/2020 Time: 13:59 Bed 4 Private MD: Rebecca Bello C ED Physician Sherman Cheng HPI: 07/28 14:09 This 70 yrs old Female presents to ER via Wheelchair with complaints of m Shortness Of Breath, Chest Pain, High Blood Pressure. 14:09 The patient has shortness of breath at rest. Onset: The symptoms/episode began/occurred jmm gradually, this morning, at 07:00. The patient's shortness of breath has no apparent modifying factors. Associated signs and symptoms: Pertinent positives: chest pain. This is a 70 year old female with a history of htn that presents to the ED with complaints of intermittent chest beginning this morning around 0700. Patient also complains of shortness of breath. Denies fever. . Historical: - Allergies: 14:04 Codeine; ca1 14:04 PENICILLINS; ca1 14:04 steroids; ca1 14:04 Dilaudid; ca1 - Home Meds: 14:04 amlodipine 5 mg tab 1 tab once daily [Active]; omeprazole 40 mg Oral cpDR 1 cap once ca1 daily [Active]; - PMHx: 14:04 allergies; Hypertension; ca1 - PSHx: 14:04 Hysterectomy; Knee surgery; ca1 - Immunization history:: Pneumococcal vaccine is not up to date, Flu vaccine is not up to date. - Social history:: Smoking status: Patient denies any tobacco usage or history of. ROS: 14:09 Constitutional: Negative for fever, chills, and weight loss. jmm 14:09 Cardiovascular: Positive for chest pain. 14:09 Respiratory: Positive for shortness of breath. 14:09 All other systems are negative. Exam: 14:09 Constitutional: This is a well developed, well nourished patient who is awake, alert, jmm and in no acute distress. Head/Face: atraumatic. Eyes: EOMI, no conjunctival erythema appreciated ENT: Moist Mucus Membranes Neck: Trachea midline, Supple Chest/axilla: Normal chest wall appearance and motion. Cardiovascular: Regular rate and rhythm. No edema appreciated Respiratory: Normal respirations, no respiratory distress appreciated Abdomen/GI: Non distended, soft Back: Normal ROM Skin: General appearance color normal MS/ Extremity: Moves all extremities, no obvious deformities appreciated, no edema noted to the lower extremities Neuro: Awake and alert, normal gait Psych: Behavior is normal, Mood is normal, Patient is cooperative and pleasant Vital Signs: 14:00 BP 172 / 72; Pulse 107; Resp 20 S; Temp 97(TE); Pulse Ox 98% on R/A; Weight 95.25 kg ca1 (R); Height 5 ft. 5 in. (165.10 cm) (R); Pain 0/10; 15:38 BP 158 / 83; Pulse 96; Resp 22; Pulse Ox 97% ; jl7 17:12 BP 135 / 64; Pulse 94; Resp 19; Pulse Ox 96% ; jl7 14:00 Body Mass Index 34.95 (95.25 kg, 165.10 cm) ca1 MDM: 14:09 Patient medically screened. sergio 18:45 Data reviewed: vital signs, nurses notes. Counseling: I had a detailed discussion with vladimir the patient and/or guardian regarding: the historical points, exam findings, and any diagnostic results supporting the discharge/admit diagnosis, lab results, radiology results, the need for further work-up and treatment in the hospital. ED course: I discussed the patient with Dr. Bello whom accepted admission. . 07/28 14:10 Order name: Basic Metabolic Panel; Complete Time: 15:24 [facility] 07/28 14:10 Order name: CBC with Diff; Complete Time: 15:07 [facility] 07/28 14:10 Order name: LFT's; Complete Time: 15:24 [facility] 07/28 14:10 Order name: Magnesium; Complete Time: 15:24 [facility] 07/28 14:10 Order name: NT PRO-BNP; Complete Time: 15:24 [facility] 07/28 14:10 Order name: PT-INR; Complete Time: 15:24 [facility] 07/28 14:10 Order name: Troponin (emerg Dept Use Only); Complete Time: 15:24 [facility] 07/28 14:33 Order name: D-Dimer; Complete Time: 15:30 [facility] 07/28 18:17 Order name: COVID-19/FLU A+B; Complete Time: 18:19 [facility] 07/28 18:52 Order name: Basic Metabolic Panel [facility] 07/28 18:52 Order name: Basic Metabolic Panel [facility] 07/28 18:52 Order name: CBC with Automated Diff [facility] 07/28 14:10 Order name: XRAY Chest (1 view); Complete Time: 15:41 [facility] 07/28 14:10 Order name: EKG; Complete Time: 14:11 [facility] 07/28 14:10 Order name: Cardiac monitoring; Complete Time: 14:17 [facility] 07/28 15:30 Order name: CT Chest For PE Angio; Complete Time: 17:03 [facility] 07/28 18:52 Order name: CONS Physician Consult [facility] 07/28 18:52 Order name: Consistent Carb (ADA) [address] [facility] 07/28 18:52 Order name: EKG Electrocardiogram [facility] 07/28 18:52 Order name: EKG Electrocardiogram [facility] 07/28 18:52 Order name: EKG Electrocardiogram [facility] 07/28 18:52 Order name: EKG Electrocardiogram [facility] 07/28 18:52 Order name: CBC with Automated Diff [facility] 07/28 18:52 Order name: Troponin I [facility] 07/28 18:52 Order name: Troponin I [facility] 07/28 18:52 Order name: Troponin I [facility] 07/28 14:10 Order name: EKG - Nurse/Tech; Complete Time: 14:17 [facility] 07/28 14:10 Order name: IV Saline Lock; Complete Time: 14:38 [facility] 07/28 14:10 Order name: Labs collected and sent; Complete Time: 14:38 [facility] 07/28 14:10 Order name: O2 Per Protocol; Complete Time: 14:17 [facility] 07/28 14:10 Order name: O2 Sat Monitoring; Complete Time: 14:17 [facility] Administered Medications: 17:10 CANCELLED (Duplicate Order): AZITHromycin 500 mg PO once [facility] 17:59 Drug: AZITHromycin 500 mg Route: IVPB; Infused Over: 1 hrs; Site: left antecubital; iw 19:11 Follow up: Response: No adverse reaction; IV Status: Completed infusion jl7 Disposition: 07/29 06:32 Co-signature as Attending Physician, Sherman Cheng MD I agree with the assessment and sergio plan of care. Disposition: 07/28/20 18:47 Hospitalization ordered by Rebecca Bello for Observation. Preliminary diagnosis are Chest pain, unspecified, Pneumonia. - Bed requested for Telemetry/MedSurg (Inpatient). - Status is Observation. rv - Condition is Stable. - Problem is new. - Symptoms are unchanged. Signatures: Dispatcher [employer] [facility] Winsome Spence Khadijah Bender, RN Sherman Saucedo MD MD cha Mickail, Joel, PA PA [facility] Viviana Slade, RN RN iw Fabien Schreiber, RN TODD rv [place], Jelly RN Kyra Kelley RN jl7 Corrections: (The following items were deleted from the chart) 07/28 17:10 17:04 AZITHromycin 500 mg PO once ordered. [facility] 17:19 16:31 Influenza Screen (A \T\ B)+BA.LAB.BRZ ordered. [facility] 17:21 16:31 CORONAVIRUS+MR.LAB.BRZ ordered. [facility] 18:53 18:47 Hospitalization Ordered by A Ace ADAN for Observation. Preliminary diagnosis is bd Chest pain, unspecified; Pneumonia. Bed requested for Telemetry/MedSurg (observation). Status is Observation. Condition is Stable. Problem is new. Symptoms are unchanged. [facility] 19:57 18:53 07/28/2020 18:47 Hospitalization Ordered by A Ace ADAN for Observation. Preliminary diagnosis is Chest pain, unspecified; Pneumonia. Bed requested for [facility] ER HOLD. Status is Observation. Condition is Stable. Problem is new. Symptoms are unchanged. 22:03 19:57 07/28/2020 18:47 Hospitalization Ordered by A Ace ADAN for Observation. rv Preliminary diagnosis is Chest pain, unspecified; Pneumonia. Bed requested for Telemetry/MedSurg (Inpatient). Status is Observation. Condition is Stable. Problem is new. Symptoms are unchanged. dw
[2020-07-28] MEDS ORDERED: ONDANSETRON 4 MG/2 ML VIAL IV PRN (18:50)
--- NOTE | 2020-07-28 22:10 | HP ---
Date of Admission: 07/28/2020 Chief Complaint: Chest pain. History Of Present Illness: This is a 70-year-old female patient, who has underlying history of hypertension, anxiety problem, was doing fine, in her usual state of health until this morning. Her systolic blood pressure was around 203 and she was having some chest tightness, pressure type of feeling in the center of her chest, did not radiate anywhere. No other associated symptoms. She came into emergency room. After she was evaluated in the ER, she was admitted to the hospital. I saw her in the emergency room and she did not have any other symptoms like fever, chills, nausea, vomiting. The patient was admitted to the hospital after workup in the emergency room. Review of Systems: Cardiovascular: As mentioned above. All other systems reviewed and negative. Allergies: PENICILLIN CAUSING RASH AND HIVES; CODEINE MAKES HER FEEL HYPER; BENADRYL, DETAILS UNKNOWN; TYLENOL, FEELS BETTER; DILAUDID, RESPIRATORY SUPPRESSION. Medications: List reviewed. Past Medical History: Significant for hypertension, hyperlipidemia, gastroesophageal reflux disease, impaired fasting glucose, osteoarthritis at multiple sites. Past Surgical History: Cholecystectomy on April 28, 2020, hysterectomy, knee surgery. Family History: Father with COPD, heart disease. Mother with Alzheimer's disease, heart disease. Sister with hypertension. Social History: Negative for smoking or alcohol use. Physical Examination: Vital Signs: When the patient came into emergency room, blood pressure 172/72, pulse 107, respiratory rate 20, temperature 97, pulse ox 98%. Weight 95.25 kg, height 5 feet 5 inches. General: Awake, alert, oriented, not in distress. HEENT: Head atraumatic, normocephalic. Conjunctivae nonerythematous. Sclerae white. Mouth, no thrush or edema noted. Ears/Nose, no mass, lesion, discharge noted. Neck: Supple. No JVD, lymph nodes, bruit, thyromegaly noted. Lungs: Bilateral good equal air entry. Clear to auscultation. No rhonchi. No rales. Heart: Normal heart sounds. No murmur or gallop. Abdomen: Soft. Bowel sounds normal. No guarding, rigidity, tenderness, mass, hepatosplenomegaly, distention, or bruit noted. Extremities: No leg edema. No calf tenderness. Skin: No rash, ulcer, cellulitis. Lymphatics: No lymph node enlargement in neck, supraclavicular, infraclavicular region. Neuro: No focal neurological deficit. Chest: Unremarkable. External Genitalia: Deferred. Rectal: Deferred. Laboratory Data: Chest x-ray showed increase in interstitial lung markings and central vascular engorgement, minimal infiltrate is possible. CAT scan of the chest per PE protocol showed no evidence of pulmonary embolism, scattered interstitial thickening and scattered tree-in-bud lung parenchymal opacity present. White count 7.9, hemoglobin 15, platelets 235. Sodium 141, potassium 4, chloride 108, bicarb 28, BUN 21, creatinine 0.90, glucose 183. Liver function tests unremarkable. Troponin less than 0.02. Impression: 1. Chest pain. 2. Hypertension. 3. Hyperlipidemia. 4. Gastroesophageal reflux disease. 5. Impaired fasting glucose. Plan: Admit the patient to hospital for further evaluation and management of this problem the patient is appropriate for observation we will go ahead and get serial cardiac enzymes tomorrow. We will plan to do stress on echocardiogram and once the workup is completed depending on the stress test result, we will decide about discharge planning. Details and plan of treatment discussed with the patient the option tomorrow morning for followup. TATI/RUPERT Voice ID: [id number] MTDD
[2020-07-28 22:24] VITALS: BMI 34.6
[2020-07-29 05:33] LABS: Absolute Lymphocytes (CBC) 1.7 K/uL (0.7-4.9); Basophils % 0.7 % (0-1.3); Hematocrit 39.4 % (36.0-45.0); Lymphocytes % 24.4 % (15.3-44.8); MPV 7.8 fL (7.6-11.3); RBC Red Blood Cell Count 4.41 M/uL (3.86-4.86)
[2020-07-29] MEDS ORDERED: AMLODIPINE 5 MG TAB PO SCH (09:00)
[2020-07-29] MEDS ORDERED: ASPIRIN EC 81 MG TAB PO SCH (09:00)
[2020-07-29 09:59] VITALS: O2SAT 94
[2020-07-29] MEDS ORDERED: REGADENOSON 0.4 MG/5 ML SYR IV ONE (10:11)
--- NOTE | 2020-07-29 12:12 | EKG ---
Test Date: 2020-07-28 Test Time: 14:12:50 [employer] Weighmaster: SALLY MEASUREMENT RESULTS: Intervals: Rate: 103 WV: 146 QRSD: 82 QT: 354 QTc: 463 Pella: P: 61 WV: 146 QRS: 2 T: 54 INTERPRETIVE STATEMENTS: Sinus tachycardia with occasional premature ventricular complexes Nonspecific ST abnormality Abnormal ECG Compared to ECG 04/23/2020 22:53:21 Ventricular premature complex(es) now present ST (T wave) deviation now present Sinus rhythm no longer present Myocardial infarct finding no longer present Electronically Signed On 07-29-20 12:10:35 SCALE TESTER by Chau Gunn
[2020-07-29 12:18] VITALS: TEMP 97.8
--- NOTE | 2020-07-29 12:43 | RAD REPORT ---
EXAM DESCRIPTION: NM - Rest Stress Cardiac Imaging - 07/29/2020 12:19 pm CLINICAL HISTORY: Chest pain. COMPARISON: None. TECHNIQUE: The patient was administered 10. mCi of Tc 99m Sestamibi prior to resting SPECT imaging o f the heart. The patient was then administered 30. MCi of Tc 99m Sestamibi following exercise or pha rmacologic stress. Multiplanar SPECT images were reviewed. FINDINGS: There is uniformity of radiotracer uptake involving the entire left ventricular myocardiu m on rest and stress images. The left ventricular ejection fraction equals 73% IMPRESSION: Negative for a myocardial perfusion defect
--- NOTE | 2020-07-29 13:06 | ECHO ---
HEIGHT: 5 ft 5 in WEIGHT: 208 lb 0 oz DATE OF STUDY: 07/30/[address]: Mauricio Bello MD 2-DIMENSIONAL: YES M.MODE: YES DOPPLER: YES COLOR FLOW: YES TDS: PORTABLE: DEFINITY: BUBBLE STUDY: DIAGNOSIS: CHEST PAIN CARDIAC HISTORY: CATHERIZATION: SURGERY: PROSTHETIC VALVE: PACEMAKER: MEASUREMENTS (cm) DIASTOLIC (NORMALS) SYSTOLIC (NORMALS) IVSd 1.1 (0.6-1.2) LA Diam 3.8 (1.9-4.0) LVEF 74% LVIDd 3.5 (3.5-5.7) LVIDs 2.0 (2.0-3.5) %FS 42% LVPWd 1.0 (0.6-1.2) Ao Diam 2.6 (2.0-3.7) 2 DIMENSIONAL ASSESSMENT: RIGHT ATRIUM: NORMAL LEFT ATRIUM: NORMAL RIGHT VENTRICLE: NORMAL LEFT VENTRICLE: NORMAL TRICUSPID VALVE: NORMAL MITRAL VALVE: NORMAL PULMONIC VALVE: NORMAL AORTIC VALVE: NORMAL PERICARDIAL EFFUSION: NONE AORTIC ROOT: NORMAL LEFT VENTRICULAR WALL MOTION: NORMAL DOPPLER/COLOR FLOW: MILD TRICUSPID REGURGITATION COMMENTS: MILD TRICUSPID REGURGITATION. NORMAL RIGHT VENTRICULAR SYSTOLIC PRESSURE. NORMAL LEFT VENTRICULAR SIZE AND FUNCTION. NO WALL MOTION ABNORMALITY. NO EFFUSION. TECHNOLOGIST: AALIYAH THOMSON
--- NOTE | 2020-07-29 13:18 | CON ---
Date of Consultation: 07/28/[address] Bello on 07/28/2020. I saw the patient on 07/28/2020. Reason For Consultation: Chest pain. History Of Present Illness: Ms. Leija is a -wpiw-frw woman with history of hypertension, ga stroesophageal reflux disease, allergies obesity, came in with pneumonia, chest pain, shortness of br eath, hypertension. Denied any nausea, vomiting, diaphoresis. She denied any palpitations or syncop e. Denies any fever or chills. Chest x-ray and CT of the chest revealed possible pneumonia. Her D- dimer was 622, but no pulmonary embolus. All the rest of the blood work was unremarkable. Past Medical History: As stated above. Allergies: SHE IS ALLERGIC TO PENICILLIN, METOPROLOL, CODEINE, AND TYLENOL. Medications: At home include Norvasc and Coreg. Review of Systems: Negative. Social History: Negative. Family History: Positive for heart disease. Physical Examination: General: She was very anxious and scared, but no acute distress otherwise. Vital Signs: Stable, afebrile. HEENT: Negative. Neck: Supple. No bruit. Chest: Clear to auscultation and percussion. Cardiac: Revealed a regular rhythm and rate with S4 gallop. Abdomen: Benign. Extremities: Revealed no clubbing, cyanosis, or edema. Diagnostic Data: As stated earlier. Impression And Plan: Shortness of breath, atypical chest pain, more likely secondary to anxiety and her pneumonia. Echocardiogram is pending. to have a Lexiscan today. We will see what th at shows before making any further decisions. Otherwise, continue the present regimen. LUIS/MEGANL Voice ID: [id number] Report ID: [id number]
--- NOTE | 2020-07-29 13:25 | TREADPHA ---
DX: CHEST PAIN Date of Study: 07/29/2020 Ht: 5' 5 " Wt: 208 lb 0 oz Consulting Physician: SARBJIT MEDICATIONS: NORVASC, ASPIRIN, ZOFRAN HISTORY: 70 YEAR OLD FEMALE, COMPLAINTS OF CHEST PAIN, HISTORY OF HYPERTENSION, NON SMOKER, NON DRINKER. PHYSICIAL EXAMINATION: RESTING B.P.: 162/59 RESTING H.R.: 90 RESTING EKG: NORMAL RHYTHM PROTOCOL: PHARMACOLOGIC EXERCISE TIME: 3:30 B.P. AT PEAK STRESS: 188/60 IMPRESSION: LEXISCAN INJECTED FOLLOWED BY CARDIOLITE PER PROTOCOL. SEE NUCLEAR MEDICINE REPORT. NO SUPRAVENTRICULAR TACHYCARDIA, VENTRICULAR TACHYCARDIA, PREMATURE ARTIAL COMPLEXES, PREMATURE VENTRICULAR COMPLEXES. PATIENT REPORTS CHEST TIGHTNESS ONE OUT OF TEN ON PAIN SCALE. NO CHEST PAIN.
[2020-07-29 15:48] VITALS: BP 150/87
--- NOTE | 2020-07-30 07:25 | DS ---
Date of Discharge: 07/29/2020 Discharge Medications And Instructions: 1. Continue prior home medications. 2. Take azithromycin 250 mg p.o. daily for 1 week. 3. Follow up at my office next week on Monday. Physical Examination: Vital Signs: Reviewed. HEENT: Unremarkable. Lungs: Clear to auscultation. Heart: Sounds normal. Abdomen: Soft. Bowel sounds normal. No guarding, rigidity, tenderness, or distention. Extremities: No leg edema. Laboratory Data: Labs done during this hospitalization: Upon admission; white count 7.9, hemoglobin 15, platelets 235. Today repeat white count 6.9, hemoglobin 13, platelets 192. Her chemistry upon admission; sodium 131, potassium 4, chloride 108, bicarb 28, BUN 21, creatinine 0.90, glucose 183. Liver function test unremarkable. Troponin less than 0.02 x3. Repeat chemistry; sodium 145, potassium 4, chloride 112, bicarb 30, BUN 20, creatinine 0.75, glucose 106 and that was this morning. Hospital Course: Ms. Leija is a pleasant 70-year-old female patient admitted to the hospital with complaints of chest pain. Please see dictated H and P for more information. After patient was evaluated in the ER, she was admitted to the hospital. Her chest x-ray was unremarkable showed some interstitial changes. CAT scan of the chest per PE protocol was negative for pulmonary embolism, but it did show some scattered interstitial increased markings and Tree-in-bud, lung parenchymal opacity indicating some atypical infections. The patient was started on IV azithromycin. GA was ruled out by getting serial cardiac enzymes. Cardiology consultation was requested from Dr. Gunn. The patient was noted to have significant anxiety problem. When I saw her in the emergency room as well as this morning on the day of discharge when I saw her, she had in her mind that if she goes to the stress test, she will have a heart attack. I tried to explain it to her, try to reassure her, but she was not agreeable to do the stress test in the hospital and informed me that she will do it as outpatient with Dr. Gunn's office, but she will not do it in the hospital. She was agreeable to get echocardiogram and our plan was to discharge her to go home. So, after I left her room Dr. Gunn evaluated her and when he talked to her, she was agreeable to get the stress test done, which was done later on and it came back negative. Echocardiogram was done, result pending. The patient was discharged to go home in stable condition. When I see her next time at the office, depending on her anxiety problem, will consider possible medication use. Final Diagnoses: 1. Chest pain, atypical. 2. Pneumonia. 3. Hypertension. 4. Hyperlipidemia. 5. Gastroesophageal reflux disease. 6. Impaired fasting glucose. 7. Anxiety. TATI/MODL Voice ID: [id number] Report ID: [id number] MTDD
--- NOTE | 2020-08-03 10:28 | PN ---
Date of Progress Note: 07/29/2020 Ms. Leija was admitted to Dr. Bello's service on 07/28/2020, when she was seen for atypical shortness o f breath and chest pain possibly anxiety and pneumonia combination. Echocardiogram and stress test w ere done for 07/29/2020. Echocardiogram was normal without any wall motion abnormality. She has ekta e mild tricuspid regurgitation with a normal right ventricular systolic pressure. Stress test was in terpreted. Stress test was normal. She had an ejection fraction of 73% without any evidence of isch emia. The patient can go home whenever it is okay with Dr. Bello. LUIS/RUPERT Voice ID: [id number] Report ID: [id number]
== END 2020-07-29 15:21 | disposition home or self-care (01) ==
LOC: ER 13:55 → ERHOLD 18:56 → 2ND 21:11
PROVIDERS: ADMIT Internal Medicine; ATTEND Internal Medicine
DX: J18.9 Pneumonia, unspecified organism (principal); R07.89 Other chest pain; I10 Essential (primary) hypertension; E78.5 Hyperlipidemia, unspecified; K21.9 Gastro-esophageal reflux disease without esophagitis; Z20.822 Contact with and (suspected) exposure to COVID-19; R73.01 Impaired fasting glucose; F41.9 Anxiety disorder, unspecified; E66.9 Obesity, unspecified; M15.9 Polyosteoarthritis, unspecified; Z68.34 Body mass index [BMI] 34.0-34.9, adult; R94.31 Abnormal electrocardiogram [ECG] [EKG]
CPT/HCPCS: 96365; 93005; 93017; 93306; 85025 ×2; 80048 ×2; 36415; 83735; 85610; 85379; 80076; 84484 ×3; 83880; 0240U; 71275; 71045; 78452; 99285; Q9967; J0456; J2785; J7050; J2405; A9500; G0378

== ENCOUNTER 2020-09-07 11:44 | Emergency (ER) | payer OTHER ==
--- OUTSIDE RECORDS SUMMARY | 2020-09-07 11:47 | XMS REPORT | Continuity of Care Document ---
:1950 Author Organization [facility] Address [address] [place] [address] [place] [id number] Care Team Providers Name Role Phone ZURI [...] Procedure Date / Time Performed Performing Clinician [facility] e [U] XR KNEE 3 S 2018-12-04 00:00:00 [facility] [U] XR KNEE 3 S 2017-12-05 00:00:00 [facility]icians Encounters Start End Encounter Admission Attending Care Care Encounter Source Date/Time Date/Time Type Type Clinicians Facility Department ID 2018-12-13 2018-12-13 NATHALIA Vaughn [facility] [id number] [facility] 13:20:00 13:20:00 t; SUPRIYA KEATING [facility] [place] R, [facility] Medicine Physici [facility] A 2017-12-07 2017-12-07 NATHALIA Preston [facility] [id number] [facility] 12:45:00 12:45:00 t; STEPHANIE FERNANDEZ Orthopedics itGiselle Murillo M.D. Physici ans 2017-11-10 2017-11-10 NATHALIA Vaughn [facility] [id number] Univers 11:15:00 11:15:00 t; SUPRIYA KEATING [place] , P.AL[facility] [place] R, P.A. Physici ans 2017-10-31 2017-10-31 Appointmen NATHALIA FERNANDEZ UTP [id number] Univers 11:00:00 11:00:00 t; STEPHANIE FERNANDEZ it y of Giselle BROWN M.D. Physici ans 2017-10-09 2017-10-09 Appointmen ROMANNATHALIA BROOKS UTP [id number] Univers 13:45:00 13:45:00 t; Alee INFANTE [place] KELLY, Physici P.A. ans Results Test Description Test Time Test Comments Results Result Sour e Comments [U] XR KNEE 3 VWS 2018-12-13 [facility] 12:58:00 acquired, not [place] reported on Physicians this accession number.
--- NOTE | 2020-09-07 14:03 | RAD REPORT ---
EXAM DESCRIPTION: CTAbdomen Pelvis W Contrast - 09/07/2020 1:54 pm CLINICAL HISTORY: Abdominal pain. ABD PAIN COMPARISON: Abdomen Pelvis W Contrast dated 04/27/2020; Abdomen Pelvis W Contrast dated 0 TECHNIQUE: Biphasic CT imaging of the abdomen and pelvis was performed with 100 ml non-ionic IV cont rast. All CT scans are performed using dose optimization technique as appropriate and may include automated exposure control or mA/KV adjustment according to patient size. FINDINGS: The lung bases are clear.Cholecystectomy clips are noted. The liver, spleen, pancreas, adrenal glands and left kidney are within normal limits. Punctate calcul i are present in the right kidney without hydronephrosis. No bowel obstruction, free air, free fluid or abscess. The appendix is normal. No evidence of signi ficant lymphadenopathy. Mild lumbar degenerative changes. IMPRESSION: Several small right renal calculi are seen without hydronephrosis. Normal appendix.
[2020-09-07 14:04] LABS: Absolute Lymphocytes (CBC) 1.7 K/uL (0.7-4.9); Basophils % 1.2 % (0-1.3); Hematocrit 48.1 % (36.0-45.0); Lymphocytes % 19.1 % (15.3-44.8); MPV 7.9 fL (7.6-11.3); RBC Red Blood Cell Count 5.43 M/uL (3.86-4.86)
[2020-09-07 14:20] LABS: Albumin 4.1 g/dL (3.4-5.0); Bilirubin Direct 0.2 mg/dL (0-0.2); Bilirubin Total 0.6 mg/dL (0.2-1.0); Protein, Total 8.2 g/dL (6.4-8.2)
[2020-09-07] MEDS ORDERED: NA CHLORIDE 0.9% 500 ML ONE (15:15)
--- NOTE | 2020-09-07 16:26 | ER ---
Nurse's Notes [facility] Name: Julieta Leija Age: 70 yrs Sex: Female : 1950 Arrival Date: 09/07/2020 Time: 11:47 Bed 14 Private MD: Diagnosis: Lower abdominal pain, unspecified Presentation: 09/07 11:57 Chief complaint: Patient states: RLQ pain x 1 - 2 days. reports nausea, diarrhea. ca1 Coronavirus screen: Client denies travel out of the [place] in the last 14 days. diarrhea, nausea, Client presents with at least one sign or symptom that may indicate coronavirus-19. Standard/surgical mask placed on the client. Provider contacted for isolation considerations. Ebola Screen: Patient negative for fever greater than or equal to 101.5 degrees Fahrenheit, and additional compatible Ebola Virus Disease symptoms Patient denies exposure to infectious person. Patient denies travel to an Ebola-affected area in the 21 days before illness onset. No symptoms or risks identified at this time. Initial Sepsis Screen: Does the patient meet any 2 criteria? No. Patient's initial sepsis screen is negative. Does the patient have a suspected source of infection? No. Patient's initial sepsis screen is negative. Risk Assessment: Do you want to hurt yourself or someone else? Patient reports no desire to harm self or others. Onset of symptoms was September 07, 2020. 11:57 Method Of Arrival: Ambulatory ca1 11:57 Acuity: MIKE 3 ca1 Triage Assessment: 13:30 General: Behavior is calm, cooperative. iw Historical: - Allergies: 11:59 Codeine; ca1 11:59 Dilaudid; ca1 11:59 PENICILLINS; ca1 11:59 steroids; ca1 - Home Meds: 11:59 amlodipine 5 mg tab 1 tab once daily [Active]; omeprazole 40 mg Oral cpDR 1 cap once ca1 daily [Active]; - PMHx: 11:59 allergies; Hypertension; ca1 - PSHx: 11:59 Hysterectomy; Knee surgery; ca1 - Immunization history:: Flu vaccine is not up to date. - Social history:: Smoking status: Patient denies any tobacco usage or history of. Screenin:28 Abuse screen: Denies threats or abuse. Denies injuries from another. Nutritional iw screening: No deficits noted. Tuberculosis screening: No symptoms or risk factors identified. Fall Risk None identified. Assessment: 13:30 General: Appears in no apparent distress. Pain: Complains of pain in right lower iw quadrant. Neuro: Level of Consciousness is awake, alert, obeys commands, Oriented to person, place, time, situation, Moves all extremities. Cardiovascular: Patient's skin is warm and dry. Respiratory: Respiratory effort is even, unlabored, Respiratory pattern is regular. GI: Bowel sounds present X 4 quads. Abd is soft X 4 quads. GI: Reports lower abdominal pain, diarrhea, nausea. Derm: Skin is intact, is healthy with good turgor. Musculoskeletal: Range of motion: intact in all extremities. 16:12 Reassessment: Patient appears in no apparent distress at this time. Patient and/or iw family updated on plan of care and expected duration. Pain level reassessed. Patient is alert, oriented x 3, equal unlabored respirations, skin warm/dry/pink. Vital Signs: 11:57 BP 137 / 65; Pulse 67; Resp 16 S; Temp 97.5(TE); Pulse Ox 95% on R/A; Weight 92.99 kg ca1 (R); Height 5 ft. 5 in. (165.10 cm) (R); Pain 4/10; 16:12 BP 160 / 71; Pulse 74; Resp 16; Pulse Ox 98% on R/A; iw 11:57 Body Mass Index 34.11 (92.99 kg, 165.10 cm) ca1 ED Course: 11:47 Patient arrived in ED. ds1 11:58 Triage completed. ca1 11:59 Arm band placed on right wrist. ca1 12:21 Marisela Medina [facility]-C [facility]. kb 12:21 Krunal Perales MD is Attending Physician. kb 13:12 Viviana Slade, TODD is Primary Nurse. iw 13:46 Inserted saline lock: 20 gauge in left antecubital area, using aseptic technique. Blood dh4 collected. 13:55 CT Abd/Pelvis - IV Contrast Only In Process Unspecified. EDMS 16:41 No provider procedures requiring assistance completed. IV discontinued, intact, iw bleeding controlled, No redness/swelling at site. Pressure dressing applied. 16:42 Patient has correct armband on for positive identification. iw Administered Medications: 15:08 Drug: NS 0.9% 500 ml Route: IV; Rate: bolus; Site: left antecubital; iw 16:00 Follow up: IV Status: Completed infusion iw Outcome: 16:25 Discharge ordered by MD. suarez 16:41 Discharged to home ambulatory. iw 16:41 Condition: good 16:41 Discharge instructions given to patient, Instructed on discharge instructions, follow up and referral plans. Demonstrated understanding of instructions, follow-up care. 16:42 Patient left the ED. iw Signatures: Dispatcher [employer] EDMarisela Harrison, CIRCULAR KNIFE CUTTER MACHINE-C CIRCULAR KNIFE CUTTER MACHINE-Deisy Randall ds1 Viviana Slade, RN RN Jelly Smith RN RN [facility] Viraj Colin 4
--- NOTE | 2020-09-07 16:26 | EDPHYS ---
Physician Documentation [facility] Name: Julieta Leija Age: 70 yrs Sex: Female : 1950 Arrival Date: 09/07/2020 Time: 11:47 Bed 14 Private MD: ED Physician Krunal Perales HPI: 09/07 16:38 This 70 yrs old Female presents to ER via Ambulatory with complaints of kb Abdominal Pain, Nausea. 16:38 The patient presents with abdominal pain right lower quadrant. Onset: The kb symptoms/episode began/occurred 6 month(s) ago. The symptoms do not radiate. Associated signs and symptoms: Pertinent positives: nausea. The symptoms are described as constant. Modifying factors: The symptoms are alleviated by nothing, the symptoms are aggravated by nothing. Severity of pain: At its worst the pain was moderate in the emergency department the pain is unchanged. The patient has not experienced similar symptoms in the past. The patient has been recently seen by a physician: the patient's primary care provider, earlier today, with similar presenting complaints, and was sent to the [facility] Emergency Department for further evaluation. Pt states she has had right lower abd pain for 6 months or so. Was seen by PCP today and told to come for a scan to rule out appendicitis. Pt states she also has had panic attacks that got worse on Monday, which is what she was going to her PCP for today. States she has had an upper GI and lower GI since pain started without abnormal findings. States she eats, but gets full quickly.. Historical: - Allergies: 11:59 Codeine; ca1 11:59 Dilaudid; ca1 11:59 PENICILLINS; ca1 11:59 steroids; ca1 - Home Meds: 11:59 amlodipine 5 mg tab 1 tab once daily [Active]; omeprazole 40 mg Oral cpDR 1 cap once ca1 daily [Active]; - PMHx: 11:59 allergies; Hypertension; ca1 - PSHx: 11:59 Hysterectomy; Knee surgery; ca1 - Immunization history:: Flu vaccine is not up to date. - Social history:: Smoking status: Patient denies any tobacco usage or history of. ROS: 16:34 Constitutional: Negative for fever, chills, and weight loss, Cardiovascular: Negative kb for chest pain, palpitations, and edema, Respiratory: Negative for shortness of breath, cough, wheezing, and pleuritic chest pain, Back: Negative for injury and pain, MS/Extremity: Negative for injury and deformity, Skin: Negative for injury, rash, and discoloration, Neuro: Negative for headache, weakness, numbness, tingling, and seizure. 16:34 Abdomen/GI: Positive for abdominal pain, nausea, Negative for vomiting, diarrhea. 16:34 Neuro: Positive for 16:34 Psych: Positive for anxiety. Exam: 16:35 Constitutional: This is a well developed, well nourished patient who is awake, alert, kb and in no acute distress. Head/Face: Normocephalic, atraumatic. Chest/axilla: Normal chest wall appearance and motion. Nontender with no deformity. No lesions are appreciated. Cardiovascular: Regular rate and rhythm with a normal S1 and S2. No gallops, murmurs, or rubs. Normal PMI, no JVD. No pulse deficits. Respiratory: Lungs have equal breath sounds bilaterally, clear to auscultation and percussion. No rales, rhonchi or wheezes noted. No increased work of breathing, no retractions or nasal flaring. Skin: Warm, dry with normal turgor. Normal color with no rashes, no lesions, and no evidence of cellulitis. MS/ Extremity: Pulses equal, no cyanosis. Neurovascular intact. Full, normal range of motion. 16:35 Neuro: Orientation: is normal, to person, place, time \T\ situation. Mentation: is normal, able to follow commands, Motor: is normal, Sensation: is normal, Gait: is steady. 16:35 Psych: Behavior/mood is pleasant, Affect is calm, Oriented to person, place, time, Patient has no thoughts/intents to harm self or others. Vital Signs: 11:57 BP 137 / 65; Pulse 67; Resp 16 S; Temp 97.5(TE); Pulse Ox 95% on R/A; Weight 92.99 kg ca1 (R); Height 5 ft. 5 in. (165.10 cm) (R); Pain 4/10; 16:12 BP 160 / 71; Pulse 74; Resp 16; Pulse Ox 98% on R/A; iw 11:57 Body Mass Index 34.11 (92.99 kg, 165.10 cm) ca1 MDM: 13:05 Patient medically screened. kb 16:21 Data reviewed: vital signs, nurses notes. Data interpreted: Pulse oximetry: on room air kb is 98 %. Interpretation: normal. Counseling: I had a detailed discussion with the patient and/or guardian regarding: the historical points, exam findings, and any diagnostic results supporting the discharge/admit diagnosis, lab results, radiology results, the need for outpatient follow up, a family practitioner, to return to the emergency department if symptoms worsen or persist or if there are any questions or concerns that arise at home. 16:41 ED course: Pt reports she's going to Dr Hagen's office upon discharge to get appt for kb the panic attacks. 09/07 13:17 Order name: Basic Metabolic Panel; Complete Time: 14:23 kb 09/07 13:17 Order name: CBC with Diff; Complete Time: 14:23 kb 09/07 13:17 Order name: Hepatic Function; Complete Time: 14:23 kb 09/07 13:17 Order name: Lipase; Complete Time: 14:23 kb 09/07 14:36 Order name: CREATININE WHOLE BLOOD; Complete Time: 14:44 EDMS 09/07 16:09 Order name: Urine Dipstick--Ancillary (enter results) em1 09/07 13:17 Order name: IV Saline Lock; Complete Time: 13:47 kb 09/07 13:17 Order name: Labs collected and sent; Complete Time: 13:47 kb 09/07 13:17 Order name: CT Abd/Pelvis - IV Contrast Only; Complete Time: 14:06 kb 09/07 15:45 Order name: Urine Dipstick-Ancillary (obtain specimen); Complete Time: 15:57 kb Administered Medications: 15:08 Drug: NS 0.9% 500 ml Route: IV; Rate: bolus; Site: left antecubital; iw 16:00 Follow up: IV Status: Completed infusion iw Disposition: 18:32 Co-signature as Attending Physician, Krunal Perales MD. rn Disposition: 09/07/20 16:25 Discharged to Home. Impression: Lower abdominal pain, unspecified. - Condition is Stable. - Discharge Instructions: Abdominal Pain, Adult, Djil-cq-Wker, Panic Attacks, Hwus-jh-Lbuf. - Medication Reconciliation Form, Thank You Letter, Antibiotic Education, Prescription Opioid Use form. - Follow up: Emergency Department; When: As needed; Reason: Worsening of condition. Follow up: Private Physician; When: 2 - 3 days; Reason: Recheck today's complaints, Continuance of care, Re-evaluation by your physician. Signatures: Dispatcher [employer] EDMarisela Harrison, RADHA BERGMAN-Viviana Mcgowan, RN RN iw Krunal Perales MD MD rn Acob, TODD Reaves RN ca1 Corrections: (The following items were deleted from the chart) 16:42 16:25 09/07/2020 16:25 Discharged to Home. Impression: Lower abdominal pain, iw unspecified. Condition is Stable. Forms are Medication Reconciliation Form, Thank You Letter, Antibiotic Education, Prescription Opioid Use. Follow up: Emergency Department; When: As needed; Reason: Worsening of condition. Follow up: Private Physician; When: 2 - 3 days; Reason: Recheck today's complaints, Continuance of care, Re-evaluation by your physician. kb
[2020-09-07 17:49] VITALS: TEMP 97.5
[2020-09-07 17:50] VITALS: BP 160/71; O2SAT 98
[2020-09-07 17:58] LABS: Urine Blood TRACE (NEG); Urine Glucose NEGATIVE (NEG); Urine Protein NEGATIVE (NEG)
== END 2020-09-07 16:42 | disposition home or self-care (01) ==
LOC: ER 11:44
DX: R10.31 Right lower quadrant pain (principal); N20.0 Calculus of kidney; I10 Essential (primary) hypertension; Z88.0 Allergy status to penicillin; Z88.5 Allergy status to narcotic agent; Z88.6 Allergy status to analgesic agent
CPT/HCPCS: 85025; 80048; 36415; 82565; 80076; 81003; 83690; 74177; 96360; 99284; Q9967; J7040

== ENCOUNTER 2022-09-05 22:28 | Emergency (ER) | payer OTHER ==
--- OUTSIDE RECORDS SUMMARY | 2022-09-05 22:32 | XMS REPORT | Continuity of Care Document ---
:1950 Author Organization [facility] t Address [address] [place] [address] Care Team Providers Name Role Phone SUPRIYA KEATING P.A. Attending Clinician Unavailable STEPHANIE FERNANDEZ M.D. Attending Clinician Unavailable ARELIS LOWE P.A. Attending Clinician Unavailable Problems Condition Condition Condition Status Onset Resolution Last Treating Co mments Source Name Details Category Date Date Treatment Clinician Date Aftercare Aftercare Problem Active [place] following following Phys ici knee joint knee joint an s replacemen replacemen t surgery, t surgery, unspecifie unspecifie d d laterality laterality Allergies, Adverse Reactions, Alerts This patient has no known allergies or adverse reactions. Medications This patient has no known medications. Procedures Procedure Date / Time Performed Performing Clinician [facility] e [U] XR KNEE 3 VWS [facility] 2018-12-04 00:00:00 [facility] [U] XR KNEE 3 VWS [facility] 2017-12-05 00:00:00 [facility] Encounters Start End Encounter Admission Attending Care Care Encounter Source Date/Time Date/Time Type Type Clinicians Facility Department ID 2018-12-13 2018-12-13 NATHALIA Vaughn [facility] [id number] [place] 13:20:00 13:20:00 t; SUPRIYA KEATING at [facility] Alee Bermudez [facility] moe R, P.A. [facility] [address] 2017-12-07 2017-12-07 NATHALIA Preston [facility] [id number] [place] 12:45:00 12:45:00 t; STEPHANIE FERNANDEZ Orthopedics Giselle Kim M.D. 2017-11-10 2017-11-10 NATHALIA Vaughn [facility] [id number] [place] 11:15:00 11:15:00 t; SUPRIYA KEATING P.A. ans R, P.A. 2017-10-31 2017-10-31 [facility] [id number] [place] 11:00:00 11:00:00 t; STEPHANIE FERNANDEZ, Ph Giselle Saenz M.D. 2017-10-09 2017-10-09 [facility] UTP [id number] [place] 13:45:00 13:45:00 t; Ananda INFANTE. Ph moe Rojas P.A. Results Test Description Test Time Test Comments Results Result Sourc e Comments [U] XR KNEE 3 VWS 2018-12-13 Images [place] [facility] 12:58:00 acquired, not reported on this accession number.
[2022-09-05] MEDS ORDERED: DIPHENHYDRAMINE 12.5MG/5ML LIQ ONE (23:23)
--- NOTE | 2022-09-05 23:24 | EDPHYS ---
Physician Documentation [facility] Name: Julieta Leija Age: 72 yrs Sex: Female : 1950 Arrival Date: 09/05/2022 Time: 22:30 Bed 20 Private MD: ED Physician Tod Castillo HPI: 09/05 22:45 This 72 yrs old Female presents to ER via Unassigned with complaints of Allergic sp3 Reaction. 22:45 72-year-old female with multiple medical problems including hypertension, depression, sp3 anxiety, insomnia now presents to the ED after taking ziprasidone first dose which was prescribed to her by her psychiatrist. Patient states that she became shaky and uneasy and "could not sit still". She denies any drooling, inability to speak, focal neurodeficit, headache, fever, neck pain, shortness of breath, chest pain, abdominal pain, nausea, vomiting, diarrhea, rash, confusion, or any other symptoms on ROS at this time. Patient sees "Dr. Hagen" and Dr. Bello is her outside physicians.. Historical: - Allergies: 22:49 Codeine; kd3 22:49 PENICILLINS; kd3 22:49 Dilaudid; kd3 22:49 steroids; kd3 - Home Meds: 22:49 amlodipine 5 mg tab 1 tab once daily [Active]; ziprasidone HCl 20 mg oral cap [Active]; kd3 propranolol 10 mg Oral tab [Active]; zolpidem 10 mg Oral tab [Active]; bupropion HCl 150 mg Oral Tb24 [Active]; alprazolam 0.5 mg Oral tab [Active]; amlodipine 5 mg tab [Active]; - PMHx: 22:49 allergies; Hypertension; kd3 - Immunization history:: Adult Immunizations up to date. - Social history:: Smoking status: Patient denies any tobacco usage or history of. ROS: 22:46 Constitutional: Negative for fever, chills, and weight loss, Eyes: Negative for injury, sp3 pain, redness, and discharge, ENT: Negative for injury, pain, and discharge, Neck: Negative for injury, pain, and swelling, Cardiovascular: Negative for chest pain, palpitations, and edema, Respiratory: Negative for shortness of breath, cough, wheezing, and pleuritic chest pain, Abdomen/GI: Negative for abdominal pain, nausea, vomiting, diarrhea, and constipation, Back: Negative for injury and pain, MS/Extremity: Negative for injury and deformity, Skin: Negative for injury, rash, and discoloration, Neuro: Negative for headache, weakness, numbness, tingling, and seizure, Allergy/Immunology: Negative for hives, rash, and allergies. 22:46 All other systems are negative. Exam: 22:46 Constitutional: This is a well developed, well nourished patient who is awake, alert, sp3 and in no acute distress. Head/Face: Normocephalic, atraumatic. Eyes: Pupils equal round and reactive to light, extra-ocular motions intact. Lids and lashes normal. Conjunctiva and sclera are non-icteric and not injected. Cornea within normal limits. Periorbital areas with no swelling, redness, or edema. Neck: Trachea midline, no thyromegaly or masses palpated, and no cervical lymphadenopathy. Supple, full range of motion without nuchal rigidity, or vertebral point tenderness. No Meningismus. Chest/axilla: Normal chest wall appearance and motion. Nontender with no deformity. No lesions are appreciated. Cardiovascular: Regular rate and rhythm with a normal S1 and S2. No gallops, murmurs, or rubs. Normal PMI, no JVD. No pulse deficits. Respiratory: Lungs have equal breath sounds bilaterally, clear to auscultation and percussion. No rales, rhonchi or wheezes noted. No increased work of breathing, no retractions or nasal flaring. Abdomen/GI: Soft, non-tender, with normal bowel sounds. No distension or tympany. No guarding or rebound. No evidence of tenderness throughout. Back: No spinal tenderness. No costovertebral tenderness. Full range of motion. Skin: Warm, dry with normal turgor. Normal color with no rashes, no lesions, and no evidence of cellulitis. MS/ Extremity: Pulses equal, no cyanosis. Neurovascular intact. Full, normal range of motion. Neuro: Awake and alert, GCS 15, oriented to person, place, time, and situation. Cranial nerves II-XII grossly intact. Motor strength 5/5 in all extremities. Sensory grossly intact. Cerebellar exam normal. Normal gait. Psych: Awake, alert, with orientation to person, place and time. Behavior, mood, and affect are within normal limits. Vital Signs: 22:47 BP 144 / 61; Pulse 82; Resp 20; Temp 98.1(O); Pulse Ox 98% on R/A; Weight 94.35 kg; kd3 Height 5 ft. 5 in. (165.10 cm); 22:47 Body Mass Index 34.61 (94.35 kg, 165.10 cm) kd3 MDM: 22:45 Patient medically screened. sp3 22:46 Data reviewed: vital signs, nurses notes, EKG. ED course: 72-year-old female who took sp3 first dose of ziprasidone/Geodon. I believe her shaky symptoms body wide are more of a side effect and allergic reaction. I am not suspicious for CVA or other vascular defect or embolic events. Will obtain EKG to assess QT interval and if negative we will safely discharge patient home with instructions to stop the Geodon. Patient to take Xanax as needed for sleep for tonight and tomorrow night until she can be seen back to her physician team. Patient and are okay with the plan and all questions were answered. Clinically have ruled out acute coronary syndrome, CVA, PE, sepsis, shock, or any other critical findings at this time.. 23:22 ED course: Check raising patient is EKG reviewed and demonstrates normal sinus rhythm sp3 at 75 bpm with normal intervals including normal QTc of 428, normal QRS, normal axis, normal ST/T-segment without evidence of acute ischemia.. 23:23 ED course: We will safely discharge patient at this time. She is to take 1 dose of sp3 Xanax tonight for sleep and follow-up with her primary physician team as soon as possible.. 09/05 22:42 Order name: EKG - Nurse/Tech; Complete Time: 23:16 sp3 Administered Medications: 23:22 Not Given (Pt reports allergyy): Benadryl (diphenhydrAMINE) 12.5 mg PO once jb4 Disposition Summary: 09/05/22 23:24 Discharge Ordered Location: Home sp3 Condition: Stable sp3 Diagnosis - Medication side effect sp3 Followup: sp3 - With: Private Physician - When: Upon discharge from the Emergency Department - Reason: Recheck today's complaints, Continuance of care Discharge Instructions: - Discharge Summary Sheet sp3 - Dystonic Reaction sp3 Forms: - Medication Reconciliation Form sp3 - Thank You Letter sp3 - Antibiotic Education sp3 - Prescription Opioid Use sp3 Signatures: Tod Castillo MD MD sp3 Lucina Valdez RN RN kd3 Jl Orta RN jb4
--- NOTE | 2022-09-05 23:24 | ER ---
Nurse's Notes [facility] Name: Julieta Leija Age: 72 yrs Sex: Female : 1950 Arrival Date: 09/05/2022 Time: 22:30 Bed 20 Private MD: Diagnosis: Medication side effect Presentation: 09/05 22:47 Chief complaint: Patient states: I took my Ziprasidone for the first time tonight to kd3 help me sleep and now I am trembling. Coronavirus screen: Vaccine status: Patient reports being unvaccinated. Ebola Screen: No symptoms or risks identified at this time. 22:47 Method Of Arrival: Ambulatory kd3 22:49 Initial Sepsis Screen: Does the patient meet any 2 criteria? No. Patient's initial kd3 sepsis screen is negative. Does the patient have a suspected source of infection? No. Patient's initial sepsis screen is negative. Risk Assessment: Do you want to hurt yourself or someone else? Patient reports no desire to harm self or others. Onset of symptoms was September 05, 2022. 22:49 Acuity: MIKE 4 kd3 Triage Assessment: 22:49 General: Appears uncomfortable, Behavior is cooperative, anxious. Pain: Denies pain. kd3 Historical: - Allergies: 22:49 Codeine; kd3 22:49 PENICILLINS; kd3 22:49 Dilaudid; kd3 22:49 steroids; kd3 - Home Meds: 22:49 amlodipine 5 mg tab 1 tab once daily [Active]; ziprasidone HCl 20 mg oral cap [Active]; kd3 propranolol 10 mg Oral tab [Active]; zolpidem 10 mg Oral tab [Active]; bupropion HCl 150 mg Oral Tb24 [Active]; alprazolam 0.5 mg Oral tab [Active]; amlodipine 5 mg tab [Active]; - PMHx: 22:49 allergies; Hypertension; kd3 - Immunization history:: Adult Immunizations up to date. - Social history:: Smoking status: Patient denies any tobacco usage or history of. Screenin:02 [facility] ED Fall Risk Assessment (Adult) History of falling in the last 3 months, jb4 including since admission No falls in past 3 months (0 pts) Confusion or Disorientation No (0 pts) Score/Fall Risk Level 0 - 2 = Low Risk Oriented to surroundings, Maintained a safe environment. Abuse screen: Denies threats or abuse. Nutritional screening: No deficits noted. Tuberculosis screening: No symptoms or risk factors identified. Assessment: 22:59 General: Appears in no apparent distress. comfortable, Behavior is calm, cooperative, jb4 appropriate for age. Pain: Denies pain. Neuro: Level of Consciousness is awake, alert, obeys commands, Oriented to person, place, time, situation. Cardiovascular: Patient's skin is warm and dry. Respiratory: Airway is patent Respiratory effort is even, unlabored, Respiratory pattern is regular, symmetrical. GI: No signs and/or symptoms were reported involving the gastrointestinal system. : No signs and/or symptoms were reported regarding the genitourinary system. EENT: No signs and/or symptoms were reported regarding the EENT system. Derm: Skin is intact, Skin is pink, warm \T\ dry. Musculoskeletal: Circulation, motion, and sensation intact. Range of motion: intact in all extremities. 23:46 Reassessment: Patient appears in no apparent distress at this time. Patient and/or jb4 family updated on plan of care and expected duration. Pain level reassessed. Patient is alert, oriented x 3, equal unlabored respirations, skin warm/dry/pink. Pt verbalized understanding of d/c and follow up instructions. Left with steady gait with . Vital Signs: 22:47 BP 144 / 61; Pulse 82; Resp 20; Temp 98.1(O); Pulse Ox 98% on R/A; Weight 94.35 kg; kd3 Height 5 ft. 5 in. (165.10 cm); 22:47 Body Mass Index 34.61 (94.35 kg, 165.10 cm) kd3 ED Course: 22:30 Patient arrived in ED. jj6 22:31 Tod Castillo MD is Attending Physician. sp3 22:49 Triage completed. kd3 22:49 Arm band placed on left wrist. kd3 22:57 Jl Orta, TODD is Primary Nurse. jb4 23:46 Patient has correct armband on for positive identification. Bed in low position. Call jb4 light in reach. Side rails up X 1. Client placed on continuous cardiac and pulse oximetry monitoring. NIBP monitoring applied. court recording monitor on. 23:46 No provider procedures requiring assistance completed. Patient did not have IV access jb4 during this emergency room visit. Administered Medications: 23:22 Not Given (Pt reports allergyy): Benadryl (diphenhydrAMINE) 12.5 mg PO once jb4 Medication: 23:46 VIS not applicable for this client. jb4 Outcome: 23:24 Discharge ordered by . sp3 23:46 Discharged to home ambulatory. jb4 23:46 Condition: stable 23:46 Discharge instructions given to patient, Instructed on discharge instructions, follow up and referral plans. Demonstrated understanding of instructions, follow-up care. 23:47 Patient left the ED. jb4 Signatures: Jl Orta, RN RN jb4 Tod Castillo MD MD sp3 Catherine Swanj6 Lucina Valdez RN RN kd3
[2022-09-06 00:42] VITALS: BP 144/61; TEMP 98.1; O2SAT 98
--- NOTE | 2022-09-06 12:50 | EKG ---
Test Date: 2022-09-05 Test Time: 23:14:03 Assembler Knife: NATACHA MEASUREMENT RESULTS: Intervals: Rate: 75 HI: 156 QRSD: 78 QT: 384 QTc: 428 [place]: P: 76 HI: 156 QRS: 22 T: 26 INTERPRETIVE STATEMENTS: Normal sinus rhythm Normal ECG Compared to ECG 07/28/2020 14:12:50 Sinus tachycardia no longer present Ventricular premature complex(es) no longer present ST (T wave) deviation no longer present Electronically Signed On 09-06-22 12:48:58 DIRECTOR REGULATORY AGENCY by Oseas Bowie
== END 2022-09-05 23:47 | disposition home or self-care (01) ==
LOC: ER 22:28
DX: R25.1 Tremor, unspecified (principal); T43.595A Adverse effect of other antipsychotics and neuroleptics, initial encounter; I10 Essential (primary) hypertension; Z88.0 Allergy status to penicillin; Z88.5 Allergy status to narcotic agent; Z88.8 Allergy status to other drugs, medicaments and biological substances
CPT/HCPCS: 93005; 99284; Q0163

== ENCOUNTER 2022-11-15 12:59 | Emergency (ER) | payer OTHER ==
--- OUTSIDE RECORDS SUMMARY | 2022-11-15 13:03 | XMS REPORT | Continuity of Care Document ---
:1950 Author Organization [facility] t Address [address] [place] [address] Care Team Providers Name Role Phone SUPRIYA [...] Procedure Date / Time Performed Performing Clinician [facility] e [U] XR KNEE 3 VWS BILATERAL 2018-12-04 00:00:00 [facility] [U] XR KNEE 3 VWS BILATERAL 2017-12-05 00:00:00 MA Physicians Encounters Start End Encounter Admission Attending Care Care Encounter Source Date/Time Date/Time Type Type Clinicians Facility Department ID 2018-12-13 2018-12-13 NATHALIA [facility] [id number] [place] 13:20:00 13:20:00 t; SUPRIYA KEATING at [facility] moe R, P.A. [facility] [address] 2017-12-07 2017-12-07 NATHALIA Preston [facility] [id number] [place] 12:45:00 12:45:00 t; STE[facility]IE [facility] Giselle Kim M.D. 2017-11-10 2017-11-10 NATHALIA Vaughn [facility] [id number] [place] 11:15:00 11:15:00 t; SUPRIYA KEATING P.A. ans R, P.A. 2017-10-31 2017-10-31 [facility] [id number] [place] 11:00:00 11:00:00 t; STEPHANIE FERNANDEZ, Ph Giselle Saenz M.D. 2017-10-09 2017-10-09 [facility] UTP [id number] [place] 13:45:00 13:45:00 t; Ananda INFANTE. Ph moe Rojas P.A. Results Test Description Test Time Test Comments Results Result Sourc e Comments [U] XR KNEE 3 VWS 2018-12-13 Images [facility] BILATERAL 12:58:00 acquired, not reported on this accession number.
--- NOTE | 2022-11-15 14:03 | RAD REPORT ---
EXAM DESCRIPTION: CT - Head C Spine Mpr Wo Con - 11/15/2022 1:45 pm CLINICAL HISTORY: Head and neck injury status post fall. Head and neck pain COMPARISON: None. TECHNIQUE: Computed axial tomography of the head and cervical spine was obtained. Sagittal and coronal reconstruction was performed. All CT scans are performed using dose optimization technique as appropriate and may include automated exposure control or mA/KV adjustment according to patient size. FINDINGS: An intracranial bleed is not seen. The ventricles are normal in caliber. No significant hypodensity within the brain. An extra-axial fluid collection is not noted. Fluid within the visualized sinuses and mastoids is not seen A cervical fracture is not visualized. No dislocation is noted. Moderate right posterolateral disc osteophyte complex C5-6 compresses right anterior aspect of spinal cord Mild right upper lobe tree-in-bud opacities IMPRESSION: No acute intracranial abnormality is seen. A cervical fracture is not visualized. Mild right upper lobe tree-in-bud opacities probably infectious/inflammatory. Followup CT chest in 3 months recommended for re-evaluation If the patient continues to have symptoms to suggest intracranial /spinal cord pathology then MRI wou ld be recommended
--- NOTE | 2022-11-15 14:07 | RAD REPORT ---
EXAM DESCRIPTION: RAD - Shoulder Right 2 View - 11/15/2022 1:58 pm CLINICAL HISTORY: Right shoulder pain FINDINGS: No fracture or dislocation is seen.
--- NOTE | 2022-11-15 14:09 | RAD REPORT ---
EXAM DESCRIPTION: RAD - Lumbar Spine 3 Views - 11/15/2022 1:58 pm CLINICAL HISTORY: Back pain FINDINGS: No fracture or dislocation is seen. Mild to moderate rotoscoliosis thoracolumbar spine Mild chronic posterior subluxation T12 on L1, L1 on L2 and L2 on L3 Moderate spondylosis L2-3 consisting disc space narrowing, subchondral sclerosis and osteophytes Mild spondylosis remainder of the spine. Osteoarthritis facet joints lower lumbar spine. Spinal stenosis suspected
--- NOTE | 2022-11-15 14:29 | ER ---
Nurse's Notes [facility] Name: Julieta Leija Age: 72 yrs Sex: Female : 1950 Arrival Date: 11/15/2022 Time: 12:59 Bed 12 Private MD: Rebecca Bello C Diagnosis: Fall on same level, unspecified;Pain in right shoulder;Low back pain;Essential (primary) hypertension Presentation: 11/15 13:31 Chief complaint: Patient states: "I fell on Monday and hit my head on the corner of the aa5 refrigerator". Pt reports slight headache, pt denies nausea/vomiting. Pt c/o right shoulder pain and back pain. Coronavirus screen: At this time, the client does not indicate any symptoms associated with coronavirus-19. Ebola Screen: Patient denies travel to an Ebola-affected area in the 21 days before illness onset. Initial Sepsis Screen: Does the patient meet any 2 criteria? No. Patient's initial sepsis screen is negative. Does the patient have a suspected source of infection? No. Patient's initial sepsis screen is negative. Risk Assessment: Do you want to hurt yourself or someone else? Patient reports no desire to harm self or others. Onset of symptoms was November 2022. 13:31 Acuity: MIKE 4 aa5 13:31 Method Of Arrival: Ambulatory aa5 Historical: - Allergies: 13:33 Codeine; aa5 13:33 Dilaudid; aa5 13:33 PENICILLINS; aa5 13:33 steroids; aa5 - PMHx: 13:33 allergies; Hypertension; aa5 - Immunization history:: Adult Immunizations unknown. - Social history:: Smoking status: Patient denies any tobacco usage or history of. Screenin:37 [facility] ED Fall Risk Assessment (Adult) History of falling in the last 3 months, mb9 including since admission Yes- single mechanical fall (1 pt) Confusion or Disorientation No (0 pts) Intoxicated or Sedated No (0 pts) Impaired Gait No (0 pts) Mobility Assist Device Used No (0 pt) Altered Elimination No (0 pt) Score/Fall Risk Level 0 - 2 = Low Risk Oriented to surroundings, Maintained a safe environment, Educated pt \\T\\ family on fall prevention, incl call for assistance when getting out of bed. Abuse screen: Denies threats or abuse. Nutritional screening: No deficits noted. Tuberculosis screening: No symptoms or risk factors identified. Assessment: 14:35 General: Appears in no apparent distress. Behavior is calm, cooperative. Pain: mb9 Complains of pain in back. Neuro: Level of Consciousness is awake, alert, obeys commands, Oriented to person, place, time, situation, Appropriate for age. Cardiovascular: Patient's skin is warm and dry. Respiratory: Airway is patent Respiratory effort is even, unlabored, Respiratory pattern is regular, symmetrical. Derm: Bruising that is dark purple, on pelvis. Musculoskeletal: Range of motion: intact in all extremities. Vital Signs: 13:31 BP 157 / 76; Pulse 75; Resp 18 S; Temp 97.7(TE); Pulse Ox 93% on R/A; Weight 92.99 kg aa5 (R); Height 5 ft. 5 in. (R); 13:31 Body Mass Index 34.11 (92.99 kg, 165.1 cm) aa5 ED Course: 13:06 Patient arrived in ED. am2 13:06 Rebecca Bello MD is Private Physician. am2 13:11 Jose Eduardo Erwin DO is Attending Physician. ms3 13:31 Arm band placed on. aa5 13:33 Triage completed. aa5 13:46 CT Head C Spine In Process Unspecified. EDMS 13:59 Shoulder Right (2 View) XRAY In Process Unspecified. EDMS 13:59 Lumbar Spine (3 Views) XRAY In Process Unspecified. EDMS 14:28 Rebecca Bello MD is Referral Physician. ms3 14:37 No provider procedures requiring assistance completed. Patient did not have IV access mb9 during this emergency room visit. Administered Medications: No medications were administered Medication: 14:37 VIS not applicable for this client. mb9 Outcome: 14:29 Discharge ordered by . ms3 14:37 Discharged to home ambulatory. mb9 14:37 Condition: stable 14:37 Discharge instructions given to patient, Instructed on discharge instructions, follow up and referral plans. Demonstrated understanding of instructions, follow-up care. 14:37 Patient left the ED. mb9 Signatures: Dispatcher [employer] EDMS Concha Holt RN RN aa5 Clau Chong am2 Jose Eduardo Erwin DO DO ms3 Jami Garay RN RN mb9 Corrections: (The following items were deleted from the chart) 13:34 13:31 BP 157 / 76; Pulse 75bpm; Resp 18bpm; Spontaneous; Pulse Ox 92% RA; Temp 97.7F aa5 Temporal; 92.99 kg Reported; Height 5 ft. 5 in. Reported; BMI: 34.1; aa5
--- NOTE | 2022-11-15 14:29 | EDPHYS ---
Physician Documentation [facility] Name: Julieta Leija Age: 72 yrs Sex: Female : 1950 Arrival Date: 11/15/2022 Time: 12:59 Bed 12 Private MD: Rebecca Bello C ED Physician Jose Eduardo Erwin HPI: 11/15 13:37 This 72 yrs old Female presents to ER via Ambulatory with complaints of Fall Injury. ms3 13:37 72-year-old female with past medical history of hypertension, GERD depression, anxiety ms3 presents for right shoulder pain and lower back pain after falling on Monday. Patient states she was walking in her house that is located in [facility] and her flip-flop hung up on something on the floor causing her to fall. Patient states she was seen at the ER and imaging was not performed. Patient was given tramadol and did not take the medications. Patient called to follow-up with Dr. Bello and she was sent to the emergency department for imaging. Patient states her discomfort is a 4/10 mainly located in her right shoulder. Patient denies alleviating or inciting factors. Historical: - Allergies: 13:33 Codeine; aa5 13:33 Dilaudid; aa5 13:33 PENICILLINS; aa5 13:33 steroids; aa5 - PMHx: 13:33 allergies; Hypertension; aa5 - Immunization history:: Adult Immunizations unknown. - Social history:: Smoking status: Patient denies any tobacco usage or history of. ROS: 13:37 Constitutional: Negative for fever, and chills. Neck: Negative for injury, pain, and ms3 swelling, Cardiovascular: Negative for chest pain, and palpitations. Respiratory: Negative for shortness of breath, cough, wheezing, and pleuritic chest pain, Abdomen/GI: Negative for abdominal pain, nausea, vomiting, diarrhea, and constipation. 13:37 MS/extremity: Positive for pain, of the right shoulder, low back. 13:37 All other systems are negative. Exam: 13:37 Constitutional: This is a well developed, well nourished patient who is awake, alert, ms3 and in no acute distress. Head/Face: Normocephalic, atraumatic. Neck: Trachea midline, no cervical lymphadenopathy. Supple, full range of motion without nuchal rigidity, or vertebral point tenderness. No Meningismus. Chest/axilla: Normal chest wall appearance and motion. Nontender with no deformity. Cardiovascular: Regular rate and rhythm with a normal S1 and S2. No gallops, murmurs, or rubs. Normal PMI, no JVD. No pulse deficits. Respiratory: Lungs have equal breath sounds bilaterally, clear to auscultation and percussion. No rales, rhonchi or wheezes noted. No increased work of breathing, no retractions or nasal flaring. Abdomen/GI: Soft, non-tender, with normal bowel sounds. No distension or tympany. No guarding or rebound. No evidence of tenderness throughout. Skin: Warm, dry with normal turgor. Normal color with no rashes, no lesions, and no evidence of cellulitis. 13:37 Musculoskeletal/extremity: Extremities: noted in the right shoulder: pain, tenderness, noted in the low back pain: pain, tenderness. Vital Signs: 13:31 BP 157 / 76; Pulse 75; Resp 18 S; Temp 97.7(TE); Pulse Ox 93% on R/A; Weight 92.99 kg aa5 (R); Height 5 ft. 5 in. (R); 13:31 Body Mass Index 34.11 (92.99 kg, 165.1 cm) aa5 MDM: 13:29 Patient medically screened. ms3 13:37 Differential diagnosis: fracture, sprain, strain. ms3 14:30 Data reviewed: vital signs, radiologic studies, and as a result, I will discharge ms3 patient. Independent interpretation of the following test(s) in the Emergency Department X-Ray: My interpretation is Right shoulder x-ray images reviewed do not reveal fracture. Counseling: I had a detailed discussion with the patient and/or guardian regarding: the historical points, exam findings, and any diagnostic results supporting the discharge/admit diagnosis, radiology results, the need for outpatient follow up, to return to the emergency department if symptoms worsen or persist or if there are any questions or concerns that arise at home. ED course: Discussed x-rays and CTs with patient and her . Patient to follow-up with Dr. Bello in 2 to 3 days. Patient understands and agrees with plan. All questions were answered. Return precautions discussed include worsening symptoms, or any other concerns. 11/15 13:29 Order name: Shoulder Right (2 View) XRAY; Complete Time: 14:24 ms3 11/15 13:29 Order name: Lumbar Spine (3 Views) XRAY; Complete Time: 14:24 ms3 11/15 13:36 Order name: CT Head C Spine; Complete Time: 14:24 ms3 Administered Medications: No medications were administered Disposition Summary: 11/15/22 14:29 Discharge Ordered Location: Home ms3 Condition: Stable ms3 Diagnosis - Fall on same level, unspecified ms3 - Pain in right shoulder ms3 - Low back pain ms3 - Essential (primary) hypertension ms3 Followup: ms3 - With: Rebecca Bello MD - When: 2 - 3 days - Reason: Recheck today's complaints Discharge Instructions: - Discharge Summary Sheet ms3 - Hypertension, Adult ms3 - Musculoskeletal Pain ms3 Forms: - Medication Reconciliation Form ms3 - Thank You Letter ms3 - Antibiotic Education ms3 - Prescription Opioid Use ms3 Signatures: Dispatcher [employer] Concha Hunter RN RN aa5 Jose Eduardo Erwin DO DO ms3
[2022-11-15 14:52] VITALS: BP 157/76; TEMP 97.7; O2SAT 93
== END 2022-11-15 14:37 | disposition home or self-care (01) ==
LOC: ER 12:59
DX: M25.511 Pain in right shoulder (principal); M54.50 Low back pain, unspecified; W18.30XA Fall on same level, unspecified, initial encounter; I10 Essential (primary) hypertension; Z88.0 Allergy status to penicillin; Z88.5 Allergy status to narcotic agent; Z88.8 Allergy status to other drugs, medicaments and biological substances
CPT/HCPCS: 70450; 72100; 72125; 99283

== ENCOUNTER 2023-02-06 15:36 | Emergency (ER) | payer OTHER ==
--- OUTSIDE RECORDS SUMMARY | 2023-02-06 16:01 | XMS REPORT | Continuity of Care Document ---
:1950 Author Organization [facility] t Address [address] [facility] [address] [place] [address] Care Team Providers Name Role Phone SUPRIYA [...] Procedure Date / Time Performed Performing Clinician [facility] e [U] XR KNEE 3 VWS BILATERAL 2018-12-04 00:00:00 [facility] [U] XR KNEE 3 VWS BILATERAL 2017-12-05 00:00:00 [facility] Encounters Start End Encounter Admission Attending Care Care Encounter Source Date/Time Date/Time Type Type Clinicians Facility Department ID 2018-12-13 2018-12-13 NATHALIA [facility] [id number] [place] 13:20:00 13:20:00 t; SUPRIYA KEATING [facility] Alee Bermudez [facility] moe Jacob, P.ALay [facility] A 2017-12-07 2017-12-07 NATHALIA Preston [facility] [id number] [place] 12:45:00 12:45:00 t; [facility] Giselle Kim M.D. 2017-11-10 2017-11-10 NATHALIA Vaughn [facility] [id number] [place] 11:15:00 11:15:00 t; SUPRIYA KEATING P.A. ans R, PLayA. 2017-10-31 2017-10-31 [facility] [id number] [place] 11:00:00 11:00:00 t; STEPHANIE FERNANDEZ, Ph Giselle Saenz M.D. 2017-10-09 2017-10-09 [facility] [id number] [place] 13:45:00 13:45:00 t; Alee INFANTE Ph moe Rojas P.A. Results Test Description Test Time Test Comments Results Result Sourc e Comments [U] XR KNEE 3 VWS 2018-12-13 [facility] BILATERAL 12:58:00 acquired, not reported on this accession number.
[2023-02-06 17:22] LABS: Absolute Lymphocytes (CBC) 1.3 K/uL (0.7-4.9); Hematocrit 47.7 % (36.0-45.0); Lymphocytes % 19.8 % (15.3-44.8); MCV 89.8 fL (80-100); MPV 7.1 fL (7.6-11.3); RBC Red Blood Cell Count 5.31 M/uL (3.86-4.86)
[2023-02-06 17:45] LABS: Albumin 3.5 g/dL (3.4-5.0); Bilirubin Total 0.4 mg/dL (0.2-1.0); Protein, Total 7.7 g/dL (6.4-8.2)
[2023-02-06] MEDS ORDERED: metroNIDAZOLE 500 MG TABLET ONE (17:59)
[2023-02-06] MEDS ORDERED: CIPROFLOXACIN HCL 500 MG TAB ONE (18:00)
[2023-02-06 18:15] LABS: Potassium 3.9 mEq/L (3.5-5.1)
--- NOTE | 2023-02-06 18:34 | ER ---
Nurse's Notes [facility] Name: Julieta Leija Age: 72 yrs Sex: Female : 1950 Arrival Date: 02/06/2023 Time: 15:36 Bed 11 Private MD: Diagnosis: Infectious gastroenteritis and colitis, unspecified;Diarrhea, unspecified Presentation: 02/06 15:54 Chief complaint: Patient states: diarrhea onset yesterday. Pt states that the diarrhea cm10 got worse today. Pt states that she feels like she is using the restroom every couple of minutes. Coronavirus screen: Client denies travel out of the [place] in the last 14 days. Ebola Screen: No symptoms or risks identified at this time. Initial Sepsis Screen: Does the patient meet any 2 criteria? No. Patient's initial sepsis screen is negative. Does the patient have a suspected source of infection? No. Patient's initial sepsis screen is negative. Risk Assessment: Do you want to hurt yourself or someone else? Patient reports no desire to harm self or others. Onset of symptoms was February 05, 2023. 15:54 Method Of Arrival: Ambulatory cm10 15:54 Acuity: MIKE 3 cm10 Historical: - Allergies: 15:54 Codeine; cm10 15:54 Dilaudid; cm10 15:54 PENICILLINS; cm10 15:54 steroids; cm10 - PMHx: 15:54 allergies; Hypertension; cm10 - Immunization history:: Adult Immunizations unknown. - Social history:: Smoking status: Patient denies any tobacco usage or history of. Screenin:29 [facility] ED Fall Risk Assessment (Adult) Score/Fall Risk Level 0 - 2 = Low Risk. Abuse as6 screen: Denies threats or abuse. Denies injuries from another. Nutritional screening: No deficits noted. Tuberculosis screening: No symptoms or risk factors identified. Assessment: 16:30 General: Appears in no apparent distress. uncomfortable, Behavior is calm, cooperative, jl7 appropriate for age. Pain: Denies pain. Neuro: Level of Consciousness is awake, alert, obeys commands, Oriented to person, place, time, situation. Cardiovascular: Patient's skin is warm and dry. Respiratory: Airway is patent Respiratory effort is even, unlabored, Respiratory pattern is regular, symmetrical. GI: Reports diarrhea. Derm: Skin is pink, warm \T\ dry. 17:30 Reassessment: Patient appears in no apparent distress at this time. No changes from jl7 previously documented assessment. Patient and/or family updated on plan of care and expected duration. Pain level reassessed. Patient is alert, oriented x 3, equal unlabored respirations, skin warm/dry/pink. Vital Signs: 15:54 BP 167 / 89; Pulse 79; Resp 18; Temp 97.8(O); Pulse Ox 94% ; Weight 92.53 kg; Height 5 cm10 ft. 5 in. ; Pain 0/10; 19:30 BP 149 / 81; Pulse 78; Resp 18 S; Pulse Ox 97% on R/A; as6 15:54 Body Mass Index 33.95 (92.53 kg, 165.1 cm) cm10 15:54 Pain Scale: Adult cm10 ED Course: 15:40 Patient arrived in ED. mg5 15:43 Nilesh Soler MD is Attending Physician. jr11 15:57 Triage completed. cm10 15:58 Arm band placed on Patient placed in waiting room. cm10 17:10 CBC with Diff Sent. cm10 17:10 CMP Sent. cm10 17:10 Lipase Sent. cm10 17:10 SARS-COV-2 RT PCR Sent. cm10 17:10 Initial lab(s) drawn, by me, sent to lab. COVID swab sent to lab. Inserted saline lock: cm10 20 gauge in right antecubital area, using aseptic technique. Blood collected. 17:13 Kyra Major, RN is Primary Nurse. jl7 19:29 Bed in low position. Call light in reach. Provided Education on: discharge teaching. as6 19:29 No provider procedures requiring assistance completed. IV discontinued, intact, as6 bleeding controlled, No redness/swelling at site. Pressure dressing applied. Administered Medications: 17:54 Drug: Ciprofloxacin PO 500 mg Route: PO; jl7 19:29 Follow up: Response: No adverse reaction as6 17:54 Drug: metroNIDAZOLE PO 500 mg Route: PO; jl7 19:29 Follow up: Response: No adverse reaction as6 Medication: 19:29 VIS not applicable for this client. as6 Outcome: 18:33 Discharge ordered by . jr11 19:30 Discharged to home ambulatory, with significant other. as6 19:30 Condition: stable 19:30 Discharge instructions given to patient, Instructed on discharge instructions, follow up and referral plans. medication usage, Demonstrated understanding of instructions, follow-up care, medications, Prescriptions given X 3. 19:31 Patient left the ED. as6 Signatures: Kyra Major RN RN jl7 Jose Major RN RN as6 Nilesh Soler MD MD jr11 Nicole Gil RN RN cm10 Benita Carrasco 5
--- NOTE | 2023-02-06 18:34 | EDPHYS ---
Physician Documentation [facility] Name: Julieta Leija Age: 72 yrs Sex: Female : 1950 Arrival Date: 02/06/2023 Time: 15:36 Bed 11 Private MD: ED Physician Nilesh Soler HPI: 02/06 15:57 Patient is a 72-year-old with 1 day history of diarrhea, its been significant, she says jr11 she poops every time she even stands up, has had numerous bowel movements no blood no mucus. No fever. Patient with lower abdominal pain as well. Denies any urinary pain, on review of systems she says she has a cough but that is chronic. Historical: - Allergies: 15:54 Codeine; cm10 15:54 Dilaudid; cm10 15:54 PENICILLINS; cm10 15:54 steroids; cm10 - PMHx: 15:54 allergies; Hypertension; cm10 - Immunization history:: Adult Immunizations unknown. - Social history:: Smoking status: Patient denies any tobacco usage or history of. ROS: 15:58 All other systems are negative. jr11 Exam: 15:58 Constitutional: This is a well developed, well nourished patient who is awake, alert, jr11 and in no acute distress. Head/Face: Normocephalic, atraumatic. Eyes: Extra-ocular motions intact. Lids and lashes normal. Conjunctiva and sclera are non-icteric and not injected. Cornea within normal limits. Periorbital areas with no swelling, redness, or edema. Chest/axilla: Normal chest wall appearance and motion. Nontender with no deformity. No lesions are appreciated. Cardiovascular: Regular rate and rhythm with a normal S1 and S2. No gallops, murmurs, or rubs. Normal PMI, no JVD. No pulse deficits. Respiratory: Lungs have equal breath sounds bilaterally, clear to auscultation and percussion. No rales, rhonchi or wheezes noted. No increased work of breathing, no retractions or nasal flaring. Abdomen/GI: TTP bilateral LQs MS/ Extremity: Pulses equal, no cyanosis. Neurovascular intact. Full, normal range of motion. Neuro: Awake and alert, GCS 15, oriented to person, place, time, and situation. No gross motor or sensory deficits. Vital Signs: 15:54 BP 167 / 89; Pulse 79; Resp 18; Temp 97.8(O); Pulse Ox 94% ; Weight 92.53 kg; Height 5 cm10 ft. 5 in. ; Pain 0/10; 19:30 BP 149 / 81; Pulse 78; Resp 18 S; Pulse Ox 97% on R/A; as6 15:54 Body Mass Index 33.95 (92.53 kg, 165.1 cm) cm10 15:54 Pain Scale: Adult cm10 MDM: 15:58 Differential diagnosis: Nonspecific abd pain, diverticulitis, viral gastroenteritis, jr11 gastroenteritis. Data reviewed: vital signs, nurses notes. 15:59 Patient medically screened. [facility] 18:32 ED course: Patient was not able to provide a stool sample, states that she feels jr11 better, would like to try antibiotics, return if not improving. Offered CT, through shared decision making, abdomen soft benign, would like to hold off on this. No peritonitis. 02/06 15:57 Order name: CBC with Diff; Complete Time: 17:36 [facility] 02/06 15:57 Order name: CMP; Complete Time: 18:27 [facility] 02/06 15:57 Order name: Lipase; Complete Time: 18:27 [facility] 02/06 15:58 Order name: SARS-COV-2 RT PCR; Complete Time: 18:27 [facility] 02/06 15:57 Order name: IV Saline Lock; Complete Time: 17:10 [facility] 02/06 15:57 Order name: Labs collected and sent; Complete Time: 17:10 [facility] Administered Medications: 17:54 Drug: Ciprofloxacin PO 500 mg Route: PO; 7 19:29 Follow up: Response: No adverse reaction as6 17:54 Drug: metroNIDAZOLE PO 500 mg Route: PO; jl7 19:29 Follow up: Response: No adverse reaction as6 Disposition Summary: 02/06/23 18:33 Discharge Ordered Location: Home [facility] Condition: Stable [facility] Diagnosis - Infectious gastroenteritis and colitis, unspecified jr11 - Diarrhea, unspecified jr11 Followup: jr - With: Private Physician - When: 2 - 3 days - Reason: If symptoms return Discharge Instructions: - Discharge Summary Sheet jr11 - Food Choices to Help Relieve Diarrhea, Adult jr11 - Diarrhea, Adult jr11 Forms: - Medication Reconciliation Form jr11 - Thank You Letter jr11 - Antibiotic Education jr11 - Prescription Opioid Use jr11 - Patient Portal Instructions jr11 Prescriptions: - Cipro 500 mg Oral Tablet - take 1 tablet by ORAL route every 12 hours for 10 days; 14 tablet; Refills: 0, jr11 Product Selection Permitted - Flagyl 500 mg Oral Tablet - take 1 tablet by ORAL route every 8 hours for 10 days; 21 tablet; Refills: 0, jr11 Product Selection Permitted - dicyclomine 20 mg Oral Tablet - take 1 tablet by ORAL route TID PRN abd cramps; 20 tablet; Refills: 0, Product jr11 Selection Permitted Signatures: Dispatcher [employer] Kyra Mckinnon RN RN jl7 Nilesh Soler MD MD jr11 Nicole Gil RN RN cm10 Jose Major RN as6
[2023-02-06 20:28] VITALS: TEMP 97.8
[2023-02-06 20:29] VITALS: BP 149/81; O2SAT 97
== END 2023-02-06 19:31 | disposition home or self-care (01) ==
LOC: ER 15:36
DX: A09 Infectious gastroenteritis and colitis, unspecified (principal); Z20.822 Contact with and (suspected) exposure to COVID-19; Z88.0 Allergy status to penicillin; Z88.5 Allergy status to narcotic agent; Z88.8 Allergy status to other drugs, medicaments and biological substances
CPT/HCPCS: 36415; 80053; 83690; 85025; 87635; 99284